=== PATIENT | female | born 1990 | race Caucasian/White ===

== ENCOUNTER → 2017-09-25 11:48 | Outpatient (CLI) | payer MEDICAID, SELFPAY ==
[2017-09-25 13:01] LABS: Cholesterol 128 mg/dL (200); Glucose 104 mg/dL (74-106); High Density Lipoprotein 39 mg/dL; Thyroid Stim Hormone (TSH) 1.81 uIU/mL (0.358-3.74); Triglycerides 165 mg/dL; Very Low Density Lipoprotein 33 mg/dL (5-40)
== END ==
PROVIDERS: Family Provider Internal Medicine; PCP Internal Medicine; Visit Provider Nurse Practitioner Women's Health
DX: N92.6 Irregular menstruation, unspecified (principal)
CPT/HCPCS: 36415; 80061; 82947; 83036; 84443

== ENCOUNTER → 2017-09-25 18:33 | Outpatient (CLI) | payer MEDICAID, SELFPAY ==
--- NOTE | 2017-09-25 | EMB_PTH ---
PATIENT: ELENI LOU LOC: [facility] U#:[id number] AGE/SX: 35/F ROOM: RE09/25/[address]: ANNIE Powell : 1990 BED: DIS: SPEC #: [id number] RECD: 09/25/17 18:33 STATUS: ADAN HEMAL #: [id number] THANH: 09/25/17 00:[address]: Argelia Riley NP DEPT: SURGICAL PATHOLOGY RECD BY: Severiano Valerio Tissues: Endometrium, NOS Procedures: Surgery Specimen Level IV HEADER OPERATION: Endometrial biopsy PRE-OP DIAGNOSIS: Irregular menses TISSUE SUBMITTED: Endometrial biopsy MICROSCOPIC DIAGNOSIS Endometrial biopsy: Proliferative endometrium. SJ:ghassan 09/29/17 MICROSCOPIC DESCRIPTION Slides are reviewed. GROSS DESCRIPTION Received is one container labeled with the patient's name and not further designated. The specimen consists of multiple irregular fragments of aguila-red soft tissue that in aggregate measure 2 x 2 x 0.1 cm. The specimen is totally submitted in one cassette. / SHARMIN:ghassan 09/26/17 TC:4 CPT: 37944
[2017-09-30 12:26] LABS: HPV Reflexed? NOT INDICATED
== END ==
PROVIDERS: Visit Provider Nurse Practitioner Women's Health
DX: N92.6 Irregular menstruation, unspecified (principal); Z12.4 Encounter for screening for malignant neoplasm of cervix; N85.8 Other specified noninflammatory disorders of uterus
CPT/HCPCS: 36415; 80061; 82947; 83036; 84443; 88175; 88305; G0145

== ENCOUNTER → 2017-11-25 16:15 | Outpatient (CLI) | payer MEDICAID, SELFPAY ==
[2017-11-25 17:16] LABS: Absolute Lymphocyte Count 2.35 X10^3/ul (0.83-4.51); Absolute Neutrophil Count 4.7 X10^3/uL (2.0-7.7); Basophil# 0.02 X10^3/uL; Basophil% 0.3 % (0-1); Eosinophil# 0.26 X10^3/uL; Eosinophils% 3.3 % (0-5); Hematocrit 36.5 % (37-47); Hemoglobin 12.3 g/dl (12.0-15.0); Lymphocyte # 2.35 X10^3/ul (4.0); Lymphocyte % 29.7 % (19-41); Mean Corp Hgb Conc 33.7 g/gl (32-36); Mean Corpuscular Hgb 28.7 pg (27.0-32.0); Mean Corpuscular Volume 85.3 fL (81-99); Mean Platelet Vol. 10.5 fl (6.2-12.0); Monocyte# 0.56 X10^3/uL; Monocyte% 7.1 % (0-10); Neutrophil # 4.69 X10^3/uL (2.7-7.7); Neutrophil % 59.2 % (47-70); Platelet Count 254 K/mm3 (150-450); RBC Distribution Width CV 13.1 % (11.6-14.6); RBC Distribution Width SD 40.2 fl (35.1-43.9); Red Blood Count 4.28 M/mm3 (4.2-5.4); White Blood Count 7.9 K/mm3 (4.4-11.0)
[2017-11-25 17:27] LABS: POSITIVE COUNT NO; POSITIVE DIFFERENTIAL NO; POSITIVE MORPHOLOGY NO
== END ==
PROVIDERS: Family Provider Internal Medicine; PCP Internal Medicine; Visit Provider Nurse Practitioner Women's Health
DX: N92.1 Excessive and frequent menstruation with irregular cycle (principal)
CPT/HCPCS: 36415; 85025

== ENCOUNTER 2019-07-22 00:59 | Emergency (ER) | payer OTHER, SELFPAY ==
[2019-07-22 01:01] VITALS: BP 142/84; PULSE 115; RESP 16; RESP 20; TEMP 36.6; O2SAT 94; BMI 32.8
[2019-07-22] MEDS: Ondansetron ODT 4 MG Tablet PO (01:13)
--- NOTE | 2019-07-22 01:14 | ED.VIS.GEN ---
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 She has been exposed to clients with influenza. She presents with documented fever, headache, myalgias, arthralgias, nasal congestion and rhinorrhea, nonproductive cough. She has had episode of emesis x2. She denies diarrhea. She denies joint swelling. She denies rash. She has no chronic medical problems. She denies symptoms. Prior similar symptoms: No Recent Illness/Hospitalization: No - Past Medical History (1) PCOS (polycystic ovarian syndrome) Status: Chronic Past Medical History - Allergies and Home Meds Allergies/Adverse Reactions: Allergies bupropion [From Wellbutrin] Allergy (Mild, Verified 11/25/17 15:47) suicidal ideations increased Primary Care Physician: Frida Tamayo MD [Primary Care Provider] - Prior records reviewed: Yes Surgical History: no surgical history Lives: Spouse/ Significant Other Smoking Status: Never smoker Alcohol: Rare Drugs: None Review of Systems General: Reports: Chills, Fever, Malaise. Denies: Sweats, Weight loss Eyes: Denies: Visual changes - bilaterally, Blurred Vision - bilaterally ENT: Reports: Rhinorrhea, Sore throat. Denies: Bilateral ear pain Cardiovascular: Denies: Chest pain, Palpitations Respiratory: Reports: Cough. Denies: Dyspnea, Sputum, Dyspnea on exertion, Orthopnea, Paroxysmal nocturnal dyspnea Gastrointestinal: Reports: Nausea, Vomiting. Denies: Abdominal pain, Diarrhea, Melena, Hematochezia Genitourinary: Denies: Dysuria, Hematuria, Frequency Musculoskeletal: Reports: Myalgias, Arthralgias, Neck pain, Back pain. Denies: Swelling, Extremity Pain Skin: Denies: Rash, Wounds Neurological: Reports: Headache. Denies: Weakness, Parasthesia, Numbness, -, - Endocrine: Denies: Polyuria, Polydipsia Physical Exam Vital Signs/Narrative: Vital Signs Temp Pulse Resp BP Pulse Ox 07/22/19 01:01 97.9 F 115 H 20 H 142/84 H 94 Inital Vital Signs reviewed: Yes General: Well nourished, Well developed, Obese, No Acute Distress Head: Normocephalic, Atraumatic Eyes: Perrl, EOMI. Negative for: Pale conjunctiva, Scleral icterus ENT: Moist mucous membranes, TM's clear, Nasal congestion Neck: Supple, Nontender, No lymphadenopathy, No JVD Cardiovascular: Regular rhythm, No murmurs, Normal S1, Normal S2, Tachycardia Respiratory: No distress, CTA bilaterally, Chest nontender Abdomen: Soft, Nontender, Nondistended, Normal bowel sounds Back: Nontender, Normal Inspection Extremities: Nontender, No edema Skin: Normal color, No rash Neurological: Alert, Oriented x3, Cranial nerves II-XII grossly intact, Normal Strength, Normal Sensation Psychological: Normal affect, Normal Mood Diagnostic/Tx/Re-eval 07/22/19 01:14 Mucosa - Nose Influenza Types A,B Direct FA (ELAYNE) - Final Influenzae A - Medical Decision Making 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 If positive she will be excused from work. She was informed that she has influenza type A. Since she works in a long-term she was given work excuse. Since she has no significant past medical history and is not hemodynamically unstable nor she hypoxic treatment was not initiated. ED Disposition - Plan for ED Patient: Disposition: Home or Assisted Living Diagnosis: Influenza due to influenza virus, type A, human Instructions: INFLUENZA (Adult) Referrals: Frida Tamayo MD [Primary Care Provider] - 1 Week if not improving
[2019-07-22 02:01] VITALS: BP 139/93; PULSE 109; RESP 18; O2SAT 93
== END 2019-07-22 02:03 | disposition home or self-care (01) ==
PROVIDERS: Emergency Provider Emergency Medicine; PCP Internal Medicine
DX: J10.1 Influenza due to other identified influenza virus with other respiratory manifestations (principal); R11.2 Nausea with vomiting, unspecified; E28.2 Polycystic ovarian syndrome
CPT/HCPCS: 87804; 99283

== ENCOUNTER 2023-08-08 05:45 | Day surgery (SDC) | payer BC, SELFPAY ==
[2023-07-17 16:28] LABS: Hematocrit 39.2 % (37-47); Hemoglobin 12.5 g/dL (12.0-15.0); Mean Corp Hgb Conc 31.9 g/dL (32-36); Mean Corpuscular Hgb 27.1 pg (27.0-32.0); Mean Platelet Vol. 10.7 fl (6.2-12.0); Platelet Count 290 K/mm3 (150-450); RBC Distribution Width CV 14.2 % (11.6-14.6); RBC Distribution Width SD 44.5 fl (35.1-43.9); Red Blood Count 4.61 M/mm3 (4.2-5.4); White Blood Count 8.8 K/mm3 (4.4-11.0)
[2023-07-17 16:40] LABS: Hemoglobin A1c 6.4 % (3.8-5.6)
[2023-07-17 17:04] LABS: Anion Gap 5 (5-15); BUN 12 mg/dL (7-18); BUN/Creat Ratio 17.3 RATIO (10-20); Chloride 104 mmol/L (98-107); Creatinine, Serum 0.69 mg/dL (0.55-1.02); EST Glomerular Filtration Rate 103 mL/min (>60); Est Glom Filt Rate - Afr Amer 125 mL/min (>60); Glucose 111 mg/dL (74-106); Potassium 3.7 mmol/L (3.5-5.1); Sodium Level 135 mmol/L (136-145)
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
--- NOTE | 2023-08-07 07:30 | EMB_PTH ---
PATHOLOGY RESULTS PATIENT: ELENI LOU LOC: [facility] [place] U#:[id number] AGE/SX: 33/F ROOM: RE08/08/[address]: Dr. Chiara Lara MD : 1990 BED: DIS: 08/08/2023 SPEC #: [id number] RECD: 08/08/23 10:10 STATUS: ADAN HEMAL #: [id number] THANH: 08/07/23 07:[address]: Chiara Lara DEPT: SURGICAL PATHOLOGY RECD BY: Miryam Ackerman ENTERED: 08/08/23 10:11 SP TYPE: ENDOM BX/C CHEL DR: No Primary Care Phys Tissues: Endometrium, NOS Procedures: Surgery Specimen Level IV HEADER OPERATION: Hysteroscopy, D & C Symphion, IUD insertion PRE-OP DIAGNOSIS: Abnormal uterine bleeding, endometrial polyp, hyperplasia TISSUE SUBMITTED: Endometrial curettings and polyp MICROSCOPIC DIAGNOSIS Endometrial curettings and polyp: Proliferative endometrium with focally disordered proliferative endometrium. Fragments of myometrium. See comment. SHARMIN:ghassan 08/11/2023 COMMENT Clinical correlation and appropriate follow up are necessary. MICROSCOPIC DESCRIPTION Slides are reviewed. GROSS DESCRIPTION Received in fixative is one container labeled with the patient's name and designated endometrial curettings and polyp. The specimen consists of multiple irregular fragments of aguila-pink soft tissue that in aggregate measure 2.5 x 2.5 x 0.2 cm. The entire specimen is submitted in one cassette. / SHARMIN:ghassan 08/08/2023 TC:5 CPT: 01024
[2023-08-08] VITALS (7 sets, daily range): BP systolic 97–121; BP diastolic 66–78; PULSE 73–81; RESP 15–18; TEMP 36.3–36.4; O2SAT 94–97; BMI 50.7
--- OUTSIDE RECORDS SUMMARY | 2023-08-08 05:50 | XMS RPT_ITS | CCD ---
Author Name Unknown Address [address] [place] [address] Organization [facility] Care Team Providers Care Machinist Class B Name Role Phone Lalita Staples Unavailable Unavailable PROVIDER, UNKNOWN Unavailable Unavailable No, PCP Unavailable Unavailable Roni SIMMS, Bao Primary Care Provider [phone] Bao Tamayo MD Primary Care Provider [phone] Bao Tamayo MD Primary Care Provider NO, PHYSICIAN Primary Care Unavailable FARHEEN LAWRENCE Attending Unavailable GODFREY, ELENA Referring Unavailable GANTA, BAO Primary Care Unavailable DENBOW, MARY Referring Unavailable GANTA, BAO Primary Care Unavailable DENBOW, MARY Attending Unavailable GANTA, BAO Primary Care Unavailable GANTA, BAO Attending Unavailable GANTA, BAO Primary Care Unavailable CHIARA MENSAH Attending Unavail able GANTA, BAO Primary Care Unavailable GODFREY, ELENA Referring Unavailable GODFREY, ELENA Attending Unavailable GANTA, BAO Primary Care Unavailable GODFREY, ELENA Referring Unavailable GANTA, BAO Primary Care Unavailable GODFREY, ELENA Attending Unavailable GANTA, BAO Primary Care Unavailable DENBOW, MARY Attending Unavailable GANTA, BAO Primary Care Unavailable Allergies Allergy Classification Reported Allergen(s) Allergy Type Date of Onset Reaction(s) Facility (20 sources) buPROPion; Translations: [BUPROPION] Drug Allergy 6 Mental Status Change [facility] Work Phone: (1 source) buPROPion; Translations: [BUPROPION HCL] Drug Allergy 1 [facility] Repository Medications Current Medications Medication Drug Class(es) Dates Sig (Normalized) Sig (Original) Blood-Glucose Meter monitoring kit (3 sources) Start: 06-27-2022 End: 06-28-2022 Blood-Glucose Meter monitoring kit Glucose Meter of Choice - Kit - Dx: Type 2 DM - Controlled E11.9 1 Each 0 06/27/2022 06/28/2022 Active Completed/Discontinued Medications Medication Drug Class(es) Dates Sig (Normalized) Sig (Original) [id number] 200 actuat albuterol 0.09 mg/actuat metered dose inhaler (20 sources) beta2-Adrenergic Agonist Start: 06-18-2021 take 2 puff(s) by inhalation every four hours as needed albuterol HFA (PROVENTIL HFA, VENTOLIN HFA) 90 mcg/actuation inhaler Indications: Wheezing , Suspected COVID-19 virus infection Inhale 2 Puffs as instructed every 4 hours as needed. 6.7 g 1 06/18/2021 Active Problems Active Problems Problem Classification Problem Date Documented Date Episodic/Chronic Abdominal pain (4 sources) Pain in female pelvis; Translations: [Pelvic and perineal pain] Onset: 04-29-2023 04-29-2023 Episodic Administrative/social admission (3 sources) Patient encounter status; Translations: [Dietary counseling and surveillance] Episodic Anxiety disorders (20 sources) Mixed anxiety and depressive disorder; Translations: [Other specified anxiety disorders] Onset: 04-01-2018 04-01-2018 Chronic Attention-deficit, conduct, and disruptive behavior disorders (1 source) Attention deficit hyperactivity disorder; Translations: [Attention-deficit hyperactivity disorder, unspecified type] Chronic Diabetes mellitus without complication (6 sources) Type 2 diabetes mellitus; Translations: [Type 2 diabetes mellitus without complications] Onset: 05-01-2023 Chronic Disorders of lipid metabolism (3 sources) Hypertriglyceridemia; Translations: [Pure hyperglyceridemia] Chronic Disorders usually diagnosed in infancy, childhood, or adolescence (20 sources) Adult attention deficit hyperactivity disorder ; Translations: [Other specified behavioral and emotional disorders with onset usually occurring in childhood and adolescence] Onset: 06-26-2022 Chronic Headache, including migraine (20 sources) Migraine without aura, not intractable, without status migrainosus; Translations: [Migraine, unspecified, not intractable, without status migrainosus] Onset: 05-24-2017 Chronic Immunizations and screening for infectious disease (1 source) Viral screening status; Translations: [Encounter for screening for other viral diseases] Episodic Miscellaneous mental health disorders (1 source) 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; 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 Nonspecific chest pain (1 source) Chest pain; Translations: [Chest pain, unspecified] 04-02-2023 Episodic Nutritional deficiencies (4 sources) Vitamin D deficiency; Translations: [Vitamin D deficiency, unspecified] Onset: 04-02-2023 04-02-2023 Chronic Other endocrine disorders (20 sources) Polycystic ovary syndrome; Translations: [Polycystic ovarian syndrome] Onset: 09-07-2013 Chronic Other female genital disorders (3 sources) Abnormal uterine bleeding; Translations: [Abnormal uterine and vaginal bleeding, unspecified] Chronic Other female genital disorders (1 source) Pain in female genitalia on intercourse; Translations: [Unspecified dyspareunia] Chronic Other nutritional; endocrine; and metabolic disorders (2 sources) Severe obesity; Translations: [Morbid (severe) obesity due to excess calories] Chronic Other nutritional; endocrine; and metabolic disorders (20 sources) Obesity; Translations: [Obesity, unspecified] Onset: 03-26-2012 11-11-2013 Chronic Other nutritional; endocrine; and metabolic disorders (8 sources) Body mass index 40+ - severely obese; Translations: [Morbid (severe) obesity due to excess calories] Chronic Other nutritional; endocrine; and metabolic disorders (1 source) Metabolic syndrome X; Translations: [Metabolic syndrome] Chronic Other nutritional; endocrine; and metabolic disorders (20 sources) Insulin resistance; Translations: [Metabolic syndrome] Onset: 06-26-2022 Chronic Other nutritional; endocrine; and metabolic disorders (1 source) Body mass index (BMI) 50.0-59.9, adult; Translations: [BMI 50.0-59.9, adult ([facility])] Onset: 05-01-2023 Chronic Other nutritional; endocrine; and metabolic disorders (1 source) Weight gain; Translations: [Abnormal weight gain] 04-02-2023 Episodic Other screening for suspected conditions (not mental disorders or infectious disease) (3 sources) Endometrium thickened; Translations: [Abnormal findings on diagnostic imaging of other specified body structures] Onset: 05-01-2023 05-01-2023 Chronic Other screening for suspected conditions (not mental disorders or infectious disease) (4 sources) Ultrasonography of abdomen abnormal; Translations: [Abnormal findings on diagnostic imaging of other abdominal regions, including retroperitoneum] Onset: 05-01-2023 Episodic Other skin disorders (1 source) Loss of hair; Translations: [Nonscarring hair loss, unspecified] 04-02-2023 Episodic Other upper respiratory infections (2 sources) Streptococcal pharyngitis; Translations: [Streptococcal pharyngitis] Onset: 11-12-2022 Episodic Residual codes; unclassified (1 source) FH: Thyroid disorder; Translations: [Family history of other endocrine, nutritional and metabolic diseases] 04-02-2023 Episodic Unclassified (1 source) NO SHOW Unclassified (1 source) Insulin resistance; Translations: [Insulin resistance] Onset: 06-26-2022 Past or Other Problems Problem Classification Problem Date Documented Da te Episodic/Chronic Diabetes mellitus without complication (17 sources) Prediabetes; Translations: [Prediabetes] Onset: 06-26-2022 Episodic Malaise and fatigue (2 sources) Fatigue; Translations: [Other fatigue] Onset: 04-02-2023 04-02-2023 Episodic Other circulatory disease (20 sources) Elevated blood-pressure reading without diagnosis of hypertension; Translations: [Elevated blood-pressure reading, without diagnosis of hypertension] Onset: 10-26-2021 Episodic Other complications of (6 sources) History of premature rupture of membranes; Translations: [Supervision of with other poor reproductive or obstetric history, unspecified trimester] Onset: 01-09-2015 06-11-2021 Episodic Other lower respiratory disease (20 sources) H/O: asthma; Translations: [Personal history of other diseases of the respiratory system] Onset: 03-26-2012 06-11-2021 Episodic Other nervous system disorders (20 sources) History of migraine with aura; Translations: [Personal history of other diseases of the nervous system and sense organs] Onset: 10-26-2021 Episodic Other non-traumatic joint disorders (20 sources) Pain in unspecified knee; Translations: [Pain in joint, lower leg] Onset: 11-11-2013 11-11-2013 Episodic Other nutritional; endocrine; and metabolic disorders (1 source) Abnormal weight gain; Translations: [Weight gain] Onset: 04-02-2023 Episodic Other skin disorders (1 source) Nonscarring hair loss, unspecified; Translations: [Hair thinning] Onset: 04-02-2023 Episodic Residual codes; unclassified (1 source) Family history of other endocrine, nutritional and metabolic diseases; Translations: [Family history of thyroid disease] Onset: 04-02-2023 Episodic Screening or history of mental health and substance abuse (20 sources) Personal history of nicotine dependence; Translations: [H/O: depression] Onset: 03-26-2012 06-11-2021 Episodic Results Test Name Value Interpretation Reference Range Facil ity Vital Signs Date Time Vital Sign Value Performing Clinician Cam guzman 05-12-2023 10:48-0500 Body weight 143.79 kg Elena Godfrey APRN.[facility] Work Phone: [facility] 05-12-2023 10:48-0500 Diastolic blood pressure 72 mm[Hg] Elena Godfrey APRN.[facility] Work Phone: [facility] 05-12-2023 10:48-0500 Systolic blood pressure 120 mm[Hg] Elena Godfrey APRN.[facility] Work Phone: [facility] 05-01-2023 14:06-0500 Body height 170.2 cm Mary Denbow PA-C Work Phone: [facility] 05-01-2023 14:06-0500 Body temperature 97.59 [degF] Mary Denbow PA-C Work Phone: [facility] 05-01-2023 14:06-0500 Body weight 142.88 kg Mary Denbow PA-C Work Phone: [facility] 05-01-2023 14:06-0500 Diastolic blood pressure 62 mm[Hg] Mary Denbow PA-C Work Phone: [facility] 05-01-2023 14:06-0500 Heart rate 87 /min Mary Denbow PA-C Work Phone: [facility] 05-01-2023 14:06-0500 Respiratory rate 12 /min Amry Denbow PA-C Work Phone: [facility] 05-01-2023 14:06-0500 SaO2% (BldA) [Mass fraction] 98 % Mary Denbow PA-C Work Phone: [facility] 05-01-2023 14:06-0500 Systolic blood pressure 128 mm[Hg] Mary Denbow PA-C Work Phone: [facility] 04-02-2023 13:52-0400 Body height 170.2 cm Mary Denbow PA-C Work Phone: [facility] 04-02-2023 13:52-0400 Body temperature 97.2 [degF] Mary Denbow PA-C Work Phone: [facility] 04-02-2023 13:52-0400 Body weight 144.24 kg Mary Denbow PA-C Work Phone: [facility] 04-02-2023 13:52-0400 Diastolic blood pressure 70 mm[Hg] Mary Denbow PA-C Work Phone: [facility] 04-02-2023 13:52-0400 Heart rate 97 /min Mary Denbow PA-C Work Phone: [facility] 04-02-2023 13:52-0400 Respiratory rate 14 /min Mary Denbow PA-C Work Phone: [facility] 04-02-2023 13:52-0400 SaO2% (BldA) [Mass fraction] 98 % Mary Denbow PA-C Work Phone: [facility] 04-02-2023 13:52-0400 Systolic blood pressure 134 mm[Hg] Mary Denbow PA-C Work Phone: [facility] 09-09-2022 13:58-0400 Body weight 144.7 kg Bao Tamayo MD Work Phone: [facility] 09-09-2022 13:58-0400 Diastolic blood pressure 80 mm[Hg] Bao Tamayo MD Work Phone: [facility] 09-09-2022 13:58-0400 Heart rate 103 /min Bao Tamayo MD Work Phone: [facility] 09-09-2022 13:58-0400 SaO2% (BldA) [Mass fraction] 98 % Bao Tamayo MD Work Phone: [facility] 09-09-2022 13:58-0400 Systolic blood pressure 110 mm[Hg] Bao Tamayo MD Work Phone: [facility] 06-26-2022 08:48-0500 Body weight 152.95 kg Shay Malcolm RADIOLOGICAL HEALTH SPECIALIST.PICKING TABLE WORKER Work Phone: [facility] 06-26-2022 08:48-0500 Diastolic blood pressure 82 mm[Hg] Shay Malcolm RADIOLOGICAL HEALTH SPECIALIST.PICKING TABLE WORKER Work Phone: [facility] 06-26-2022 08:48-0500 Heart rate 84 /min Shay Malcolm RADIOLOGICAL HEALTH SPECIALIST.PICKING TABLE WORKER Work Phone: [facility] 06-26-2022 08:48-0500 SaO2% (BldA) [Mass fraction] 96 % Shay Malcolm RADIOLOGICAL HEALTH SPECIALIST.PICKING TABLE WORKER Work Phone: [facility] 06-26-2022 08:48-0500 Systolic blood pressure 124 mm[Hg] Shay Malcolm RADIOLOGICAL HEALTH SPECIALIST.PICKING TABLE WORKER Work Phone: [facility] 11-01-2021 16:02-0400 Body weight 148.78 kg Shay Malcolm RADIOLOGICAL HEALTH SPECIALIST.PICKING TABLE WORKER Work Phone: [facility] 11-01-2021 16:02-0400 Diastolic blood pressure 80 mm[Hg] Shay Malcolm RADIOLOGICAL HEALTH SPECIALIST.PICKING TABLE WORKER Work Phone: [facility] 11-01-2021 16:02-0400 Heart rate 94 /min Shay Malcolm RADIOLOGICAL HEALTH SPECIALIST.PICKING TABLE WORKER Work Phone: [facility] 11-01-2021 16:02-0400 SaO2% (BldA) [Mass fraction] 98 % Shay Malcolm RADIOLOGICAL HEALTH SPECIALIST.PICKING TABLE WORKER Work Phone: [facility] 11-01-2021 16:02-0400 Systolic blood pressure 122 mm[Hg] Shay Malcolm RADIOLOGICAL HEALTH SPECIALIST.PICKING TABLE WORKER Work Phone: [facility] 10-26-2021 09:44-0400 Body weight 149.23 kg Elena Godfrey RADIOLOGICAL HEALTH SPECIALIST.CNM Work Phone: [facility] 10-26-2021 09:44-0400 Diastolic blood pressure 84 mm[Hg] Elena Godfrey RADIOLOGICAL HEALTH SPECIALIST.CNM Work Phone: [facility] 10-26-2021 09:44-0400 Systolic blood pressure 134 mm[Hg] Elena Godfrey RADIOLOGICAL HEALTH SPECIALIST.CNM Work Phone: [facility] 10-04-2021 13:05-0400 Body weight 151.5 kg Shay Malcolm RADIOLOGICAL HEALTH SPECIALIST.PICKING TABLE WORKER Work Phone: [facility] 10-04-2021 13:05-0400 Diastolic blood pressure 86 mm[Hg] Shay Malcolm RADIOLOGICAL HEALTH SPECIALIST.PICKING TABLE WORKER Work Phone: [facility] 10-04-2021 13:05-0400 Heart rate 92 /min Shay Malcolm RADIOLOGICAL HEALTH SPECIALIST.PICKING TABLE WORKER Work Phone: [facility] 10-04-2021 13:05-0400 Respiratory rate 16 /min Shay Malcolm RADIOLOGICAL HEALTH SPECIALIST.PICKING TABLE WORKER Work Phone: [facility] 10-04-2021 13:05-0400 SaO2% (BldA) [Mass fraction] 97 % Shay Malcolm RADIOLOGICAL HEALTH SPECIALIST.PICKING TABLE WORKER Work Phone: [facility] 10-04-2021 13:05-0400 Systolic blood pressure 130 mm[Hg] Shay Malcolm RADIOLOGICAL HEALTH SPECIALIST.PICKING TABLE WORKER Work Phone: [facility] 09-10-2021 09:29-0400 Body weight 152.86 kg Elena Godfrey RADIOLOGICAL HEALTH SPECIALIST.CNM Work Phone: [facility] 09-10-2021 09:29-0400 Diastolic blood pressure 76 mm[Hg] Elena Godfrey RADIOLOGICAL HEALTH SPECIALIST.CNM Work Phone: [facility] 09-10-2021 09:29-0400 Systolic blood pressure 128 mm[Hg] Elena Godfrey RADIOLOGICAL HEALTH SPECIALIST.CNM Work Phone: [facility] Encounters Encounter Date Encounter Type Care Provider Facility Start: 07-16-2023 End: 07-16-2023 ambulatory CHIARACHUY GRACIANTOSH Facility:[facility] Start: 06-13-2023 End: 06-13-2023 ambulatory ELENA GODFREY Facility:[facility] Start: 05-12-2023 End: 05-12-2023 ambulatory ELENA GODFREY Facility:[facility] Start: 05-12-2023 End: 05-12-2023 Patient encounter procedure Elena Godfrey APRN.CNM Work Phone: OB/Gynecology Procedures Date Procedure Procedure Detail Performing Clinician Start: 04-29-2023 Us transvaginal Elena Godfrey APRN.CNM Work Phone: Plan of Treatment Date Care Activity Detail Author Start: 06-02-2025 Urine microalbumin profile [facility] Start: 05-01-2024 Annual PCP Team Podiatric Aide rick Disease Visit Annual PCP Team Chronic Disease Visit [facility] Start: 10-02-2023 Hemoglobin A1c/Hemoglobin.total in Blood HbA1C [facility] Start: 08-01-2023 End: 10-31-2023 Hepatic function 2000 panel - Serum or Plasma HEPATIC FUNCTION PNL Lab Routine Elevated LFTs Expected: 08/01/2023, Expires: 10/31/[address] [facility] Work Phone: Immunizations Immunization Date Immunization Notes Care Provider Kirby lima 09-10-2016 influenza, injectabl e, quadrivalent, contains preservative Elena Godfrey APRN.[facility] Work Phone: [facility] 06-02-2015 tetanus toxoid, redu kiley diphtheria toxoid, and acellular pertussis vaccine, adsorbed Elena Epifanio CAMPOSN.[facility] Work Phone: [facility] 03-06-2015 influenza, injectabl e, quadrivalent, contains preservative Elena Epifanio GALDAMEZ.[facility] Work Phone: [facility] 11-11-2013 tetanus toxoid, redu kiley diphtheria toxoid, and acellular pertussis vaccine, adsorbed Elena Godfrey RADIOLOGICAL HEALTH SPECIALIST.CNM Work Phone: [facility] Work Phone: 10-09-2012 human papilloma viru s vaccine, quadrivalent Elena Godfrey RADIOLOGICAL HEALTH SPECIALIST.CNM Work Phone: [facility] Work Phone: 03-29-2010 hepatitis B vaccine, adult dosage Elena Epifanio RADIOLOGICAL HEALTH SPECIALIST.CNM Work Phone: [facility] 02-26-2007 human papilloma viru s vaccine, quadrivalent Elena Epifanio RADIOLOGICAL HEALTH SPECIALIST.CNM Work Phone: [facility] 03-14-2003 measles, mumps and rubella virus vaccine Elena Epifanio RADIOLOGICAL HEALTH SPECIALIST.CNM Work Phone: [facility] 01-06-1995 diphtheria, tetanus toxoids and acellular pertussis vaccine Elena Godfrey RADIOLOGICAL HEALTH SPECIALIST.CNM Work Phone: [facility] 01-06-1995 hepatitis B vaccine, pediatric or pediatric/adolescent dosage Elena Epifanio RADIOLOGICAL HEALTH SPECIALIST.CNM Work Phone: [facility] 01-06-1995 trivalent poliovirus vaccine, live, oral Elena Godfrey RADIOLOGICAL HEALTH SPECIALIST.CNM Work Phone: [facility] 04-10-1994 hepatitis B vaccine, pediatric or pediatric/adolescent dosage Elena Epifanio RADIOLOGICAL HEALTH SPECIALIST.CNM Work Phone: [facility] 04-04-1994 diphtheria, tetanus toxoids and pertussis vaccine Elena Godfrey RADIOLOGICAL HEALTH SPECIALIST.CNM Work Phone: [facility] 04-04-1994 trivalent poliovirus vaccine, live, oral Elena Godfrey RADIOLOGICAL HEALTH SPECIALIST.CNM Work Phone: [facility] 10-20-1992 hepatitis B vaccine, pediatric or pediatric/adolescent dosage Elena Epifanio RADIOLOGICAL HEALTH SPECIALIST.CNM Work Phone: [facility] 09-01-1992 haemophilus influenz ae type b vaccine, HbOC conjugate Elena Godfrey RADIOLOGICAL HEALTH SPECIALIST.CNM Work Phone: [facility] 09-01-1992 measles, mumps and rubella virus vaccine Elena Epifanio CAMPOSN.CNM Work Phone: [facility] 1990 diphtheria, tetanus toxoids and acellular pertussis vaccine Elenafrantz Godfrey RADIOLOGICAL HEALTH SPECIALIST.CNM Work Phone: [facility] 1990 diphtheria, tetanus toxoids and pertussis vaccine Elena Epifanio RADIOLOGICAL HEALTH SPECIALIST.CNM Work Phone: [facility] 1990 haemophilus influenz ae type b vaccine, HbOC conjugate Elenafrantz Godfrey RADIOLOGICAL HEALTH SPECIALIST.CNM Work Phone: [facility] 1990 trivalent poliovirus vaccine, live, oral Elenafrantz Godfrey RADIOLOGICAL HEALTH SPECIALIST.CNM Work Phone: [facility] 1990 diphtheria, tetanus toxoids and pertussis vaccine Elenafrantz Godfrey RADIOLOGICAL HEALTH SPECIALIST.CNM Work Phone: [facility] 1990 trivalent poliovirus vaccine, live, oral Elenafrantz Godfrey RADIOLOGICAL HEALTH SPECIALIST.CNM Work Phone: [facility] Payers Date Payer Category Payer Unknown [id number] 2022 Unknown [id number] 2022 Unknown 2022 Unknown [id number] 2020 Private Health Insurance [facility] CHOICE PLUS [id number] 2020-Present [phone] [address] [place] [address] [facility] [id number] 1990 Unknown [id number] Social History Date Type Detail Facility Start: 03-26-2012 End: 06-26-2022 Tobacco smoking status NHIS Ex-smoker [facility] Work Phone: End: 12-15-2011 History of tobacco use Current smoker [facility] Work Phone: Start: 03-26-2012 End: 06-26-2022 Tobacco use and exposure Smokeless tobacco non-user [facility] Work Phone: Start: 09-10-2021 End: 05-12-2023 Alcohol intake Current drinker of alcohol (finding) [facility] Start: 06-18-2021 History SDOH Alcohol Frequency 2 [facility] Start: 06-18-2021 History SDOH Alcohol Std Drinks 1 [facility] Start: 03-26-2012 History SDOH Alcohol Comment occ. monthly,NOT WHILE [facility] Start: 06-18-2021 History SDOH Social Connections Get Together 98 [facility] Start: 06-18-2021 History SDOH Social Connections Living 8 [facility] Start: 06-18-2021 History SDOH Physica l Activity DPW 3 [facility] Start: 06-18-2021 History SDOH Stress 4 [facility] Start: 1990 Sex Assigned At Female C [facility] Start: 08-14-2021 End: 12-27-2021 Exposure to SARS-CoV-2 (event) Not sure [facility] Start: 11-22-2021 History SDOH Alcohol Comment very rare,NOT WHILE [facility] End: 12-15-2011 History of tobacco use Cigarette Smoker [facility] Work Phone: Start: 05-22-2020 End: 06-18-2021 History of Social function [facility] Start: 05-22-2020 End: 06-18-2021 Social connection and isolation panel [facility] How often do you get together with friends or relatives? Patient refused [facility] Do you belong to any clubs or organizations such as denominational groups, unions, fraternal or athletic groups, or school groups? No [facility] Are you now , , , , never or living with a partner? Living with partner [facility] How often to you hav e a drink containing alcohol? Monthly or less [facility] How many standard dr inks containing alcohol do you have on a typical day? 1 or 2 [facility] How often do you hav e 6 or more drinks on 1 occasion? Never [facility] How hard is it for y ou to pay for the very basics like food, housing, medical care, and heating Somewhat hard [facility] Do you feel stress - tense, restless, nervous, or anxious, or unable to sleep at night because your mind is troubled all the time - these days [OSQ] Rather much [facility] (I/We) worried wheth er (my/our) food would run out before (I/we) got money to buy more. Sometimes true [facility] [facility] Start: 06-18-2021 Gender identity Identifies as female gender (finding) [facility] Start: 06-18-2021 Sexual orientation Choose not to dis close [facility] Medical Equipment Procedure Code Equipment Code Equipment Origin al Text Equipment Identifier Dates Test blood sugar (s) 2 times daily. Dx: Type 2 DM - Controlled E11.9 Insulin: No Start: 06-27-2022 Clinical Notes 06-19-2015 to 07-16-2023 Elena Godfrey APRN.CNM - 05/12/2023 10:38 AM ESTMary Caldwell PA-C - 05/01/2023 1:56 PM Elena Wade RDMS - 04/29/2023 1:45 PM Boubacar Keita MD - 06/27/2022 3:15 PM EST Note Date & Type Note Facility 07-16-2023 Note HNO ID: [id number] Author: CHIARA MENSAH MD Service: ? Author Type: Physician Type: Progress Notes Filed: 07/16/2023 17:00 Note Text: [facility] 06-13-2023 Note HNO ID: [id number] Author: Elena Godfrey APRN.CNM Service: ? Author Type: Wastewater Engineer Type: Progress Notes Filed: 06/13/2023 1:44 PM Note Text: Aidee is a 33 year old Female who presents today for an endometrial biopsy for abnormal uterine bleeding, thickening of endometrial lining. test: negative UNIVERSAL PROTOCOL / SAFETY CHECKLIST Procedure to be Performed: Endometrial Biopsy Sign In: A Moment of CARE was completed. Personnel directly involved with the procedure wore the appropriate PPE (Personal Protective Equipment). Special equipment: pipelle Patient/Surrogate Stated/Verified: PATIENT VERIFIED(optional for EMERGENT procedures): Patient name, Date of , Relevant allergies, and The intended procedure Time Out Communication: Intended patient and procedure match the source documents. Consent documented and matches the intended procedure. Relevant labs, photos, and/or imaging studies have been reviewed. Correct side/site marked and visible. Medications required for procedure verified. No fire risk assessment and interventions applicable. Implant(s) inserted: Correct implant(s) confirmed including size and side. Sign Out: SIGN OUT (optional for EMERGENT procedures): All specimen containers correctly labeled. All instruments, equipment, possible retained foreign bodies accounted for. Post-procedure follow-up management communicated and Plan of Care Visit completed when applicable. PROCEDURE: EXTERNAL GENITALIA: Normal in appearance without lesions VAGINA: Normal in appearance without lesions BIOPSY: Speculum placed into the vagina with excellent visualization of the cervix. Cervix cleaned with betadine. Anterior lip of cervix grasped with single toothed tenaculum. Pipelle inserted into the uterus without difficulty and endometrial biopsy obtained. Specimen labeled and sent to pathology. Hemostasis achieved. Procedure Summary: Patient tolerated procedure well. ASSESSMENT: abnormal uterine bleeding PLAN: Specimens labeled and sent to Pathology. Will notify patient of results in 1-2 weeks. Post-procedure instructions reviewed and written material given to the patient. Discussed will need DANDC, will await MRI results and EMB results to plan. And discussed IUD insertion at time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 membranes (PROM) in previous , currently 01/09/2015 10/26/2021 Overview: Delivered at 36 weeks last . Will start 17-OHP injections Obesity in 01/09/2015 09/17/2021 Last Assessment & Plan: She was 301 lb when she gave to her 15 month old and she dropped to 270 and now she is back to 293. She has been exercising with doing some cardio, for 20 mins at least daily., but is also studying, she is disgusted by her appearance and is embarrassed to be in public. She has not been eating too much , drinking pop once in 3 days, went over her diet a bit. She Is going to stop breast feeding today Normal , first 03/26/2012 09/04/19 14 Pelvic pain in 03/26/2012 014 Overview: 03/26/2012Patient states she had intercourse on March 23. She states she started spotting pink to red blood and cramping on March 25 in the evening. She denies any bleeding since early this morning. She is currently taking Flagyl for a BV infection. Patient is 17w5d. She states she started feeling movement one week ago. She denies any feeling any movement for the past 1-2 days. I scheduled the patient for an appointment with Dr. Morales to evaluate the pelvic pain and previous bleeding. History of UTI 03/26/2012 09/03/2013 Overview: 03/26/2012 Patient states she had a kidney infection in 2008 that was treated in the emergency room. Patient requested diagnostic testing 03/26/2012 06/22/2012 Overview: 03/26/2012 patient desires quad marker screen. Ordered at Dr. Morales's appointment today. Patient left without having the test done. Phone call made to patient. Message left to return to clinic for test History of infection 03/26/2012 09/03/2013 Overview: 03/26/2012 treated for BV infection with Flagyl by Dr. Fairchild March 13, 2012. documented as of this encounter (statuses as of 12/03/2021) [facility] History of Past illness Narrative* Problem Noted Date Resolved Date Supervision of high risk in third trim uzma 06/19/2015 09/17/2021 Anemia of in second trimester 06/05/20 15 09/17/2021 Abnormal glucose complicating 06/05/20 15 09/17/2021 [facility] 09/17/2021 History of premature rupture of membranes (PROM) in previous , currently 01/09/2015 10/26/2021 Overview: Delivered at 36 weeks last . Will start 17-OHP injections Obesity in 01/09/2015 09/17/2021 Last Assessment & Plan: She was 301 lb when she gave to her 15 month old and she dropped to 270 and now she is back to 293. She has been exercising with doing some cardio, for 20 mins at least daily., but is also studying, she is disgusted by her appearance and is embarrassed to be in public. She has not been eating too much , drinking pop once in 3 days, went over her diet a bit. She Is going to stop breast feeding today Normal , first 03/26/2012 09/04/19 14 Pelvic pain in 03/26/2012 014 Overview: 03/26/2012Patient states she had intercourse on March 23. She states she started spotting pink to red blood and cramping on March 25 in the evening. She denies any bleeding since early this morning. She is currently taking Flagyl for a BV infection. Patient is 17w5d. She states she started feeling movement one week ago. She denies any feeling any movement for the past 1-2 days. I scheduled the patient for an appointment with Dr. Morales to evaluate the pelvic pain and previous bleeding. History of UTI 03/26/2012 09/03/2013 Overview: 03/26/2012 Patient states she had a kidney infection in 2008 that was treated in the emergency room. Patient requested diagnostic testing 03/26/2012 06/22/2012 Overview: 03/26/2012 patient desires quad marker screen. Ordered at Dr. Morales's appointment today. Patient left without having the test done. Phone call made to patient. Message left to return to clinic for test History of infection 03/26/2012 09/03/2013 Overview: 03/26/2012 treated for BV infection with Flagyl by Dr. Fairchild March 13, 2012. documented as of this encounter (statuses as of 12/27/2021) [facility] History of Past illness Narrative* Problem Noted Date Resolved Date Supervision of high risk in third trim uzma 06/19/2015 09/17/2021 Anemia of in second trimester 06/05/20 15 09/17/2021 Abnormal glucose complicating 06/05/20 15 09/17/2021 Supervision of high risk in second tri mester 04/03/2015 09/17/2021 History of premature rupture of membranes (PROM) in previous , currently 01/09/2015 10/26/2021 Overview: Delivered at 36 weeks last . Will start 17-OHP injections Obesity in 01/09/2015 09/17/2021 Last Assessment & Plan: She was 301 lb when she gave to her 15 month old and she dropped to 270 and now she is back to 293. She has been exercising with doing some cardio, for 20 mins at least daily., but is also studying, she is disgusted by her appearance and is embarrassed to be in public. She has not been eating too much , drinking pop once in 3 days, went over her diet a bit. She Is going to stop breast feeding today Normal , first 03/26/2012 09/04/19 14 Pelvic pain in 03/26/2012 014 Overview: 03/26/2012Patient states she had intercourse on March 23. She states she started spotting pink to red blood and cramping on March 25 in the evening. She denies any bleeding since early this morning. She is currently taking Flagyl for a BV infection. Patient is 17w5d. She states she started feeling movement one week ago. She denies any feeling any movement for the past 1-2 days. I scheduled the patient for an appointment with Dr. Morales to evaluate the pelvic pain and previous bleeding. History of UTI 03/26/2012 09/03/2013 Overview: 03/26/2012 Patient states she had a kidney infection in 2008 that was treated in the emergency room. Patient requested diagnostic testing 03/26/2012 06/22/2012 Overview: 03/26/2012 patient desires quad marker screen. Ordered at Dr. Morales's appointment today. Patient left without having the test done. Phone call made to patient. Message left to return to clinic for test History of infection 03/26/2012 09/03/2013 Overview: 03/26/2012 treated for BV infection with Flagyl by Dr. Fairchild March 13, 2012. documented as of this encounter (statuses as of 02/13/2022) [facility] History of Past illness Narrative* Problem Noted Date Resolved Date Supervision of high risk in third trim uzma 06/19/2015 09/17/2021 Anemia of in second trimester 06/05/20 15 09/17/2021 Abnormal glucose complicating 06/05/20 15 09/17/2021 Supervision of high risk in second tri mester 04/03/2015 09/17/2021 History of premature rupture of membranes (PROM) in previous , currently 01/09/2015 10/26/2021 Overview: Delivered at 36 weeks last . Will start 17-OHP injections Obesity in 01/09/2015 09/17/2021 Last Assessment & Plan: She was 301 lb when she gave to her 15 month old and she dropped to 270 and now she is back to 293. She has been exercising with doing some cardio, for 20 mins at least daily., but is also studying, she is disgusted by her appearance and is embarrassed to be in public. She has not been eating too much , drinking pop once in 3 days, went over her diet a bit. She Is going to stop breast feeding today Normal , first 03/26/2012 09/04/19 14 Pelvic pain in 03/26/2012 014 Overview: 03/26/2012Patient states she had intercourse on March 23. She states she started spotting pink to red blood and cramping on March 25 in the evening. She denies any bleeding since early this morning. She is currently taking Flagyl for a BV infection. Patient is 17w5d. She states she started feeling movement one week ago. She denies any feeling any movement for the past 1-2 days. I scheduled the patient for an appointment with Dr. Morales to evaluate the pelvic pain and previous bleeding. History of UTI 03/26/2012 09/03/2013 Overview: 03/26/2012 Patient states she had a kidney infection in 2008 that was treated in the emergency room. Patient requested diagnostic testing 03/26/2012 06/22/2012 Overview: 03/26/2012 patient desires quad marker screen. Ordered at Dr. Morales's appointment today. Patient left without having the test done. Phone call made to patient. Message left to return to clinic for test History of infection 03/26/2012 09/03/2013 Overview: 03/26/2012 treated for BV infection with Flagyl by Dr. Fairchild March 13, 2012. documented as of this encounter (statuses as of 06/26/2022) [facility] History of Past illness Narrative* Problem Noted Date Resolved Date Supervision of high risk in third trim uzma 06/19/2015 09/17/2021 Anemia of in second trimester 06/05/20 15 09/17/2021 Abnormal glucose complicating 06/05/20 15 09/17/2021 Supervision of high risk in second tri mester 04/03/2015 09/17/2021 History of premature rupture of membranes (PROM) in previous , currently 01/09/2015 10/26/2021 Overview: Delivered at 36 weeks last . Will start 17-OHP injections Obesity in 01/09/2015 09/17/2021 Last Assessment & Plan: She was 301 lb when she gave to her 15 month old and she dropped to 270 and now she is back to 293. She has been exercising with doing some cardio, for 20 mins at least daily., but is also studying, she is disgusted by her appearance and is embarrassed to be in public. She has not been eating too much , drinking pop once in 3 days, went over her diet a bit. She Is going to stop breast feeding today Normal , first 03/26/2012 09/04/19 14 Pelvic pain in 03/26/2012 014 Overview: 03/26/2012Patient states she had intercourse on March 23. She states she started spotting pink to red blood and cramping on March 25 in the evening. She denies any bleeding since early this morning. She is currently taking Flagyl for a BV infection. Patient is 17w5d. She states she started feeling movement one week ago. She denies any feeling any movement for the past 1-2 days. I scheduled the patient for an appointment with Dr. Morales to evaluate the pelvic pain and previous bleeding. History of UTI 03/26/2012 09/03/2013 Overview: 03/26/2012 Patient states she had a kidney infection in 2008 that was treated in the emergency room. Patient requested diagnostic testing 03/26/2012 06/22/2012 Overview: 03/26/2012 patient desires quad marker screen. Ordered at Dr. Morales's appointment today. Patient left without having the test done. Phone call made to patient. Message left to return to clinic for test History of infection 03/26/2012 09/03/2013 Overview: 03/26/2012 treated for BV infection with Flagyl by Dr. Fairchild March 13, 2012. documented as of this encounter (statuses as of 06/27/2022) [facility] History of Past illness Narrative* Problem Noted Date Resolved Date Supervision of high risk in third trim uzma 06/19/2015 09/17/2021 Anemia of in second trimester 06/05/20 15 09/17/2021 Abnormal glucose complicating 06/05/20 15 09/17/2021 [facility] 09/17/2021 History of premature rupture of membranes (PROM) in previous , currently 01/09/2015 10/26/2021 Overview: Delivered at 36 weeks last . Will start 17-OHP injections Obesity in 01/09/2015 09/17/2021 Last Assessment & Plan: She was 301 lb when she gave to her 15 month old and she dropped to 270 and now she is back to 293. She has been exercising with doing some cardio, for 20 mins at least daily., but is also studying, she is disgusted by her appearance and is embarrassed to be in public. She has not been eating too much , drinking pop once in 3 days, went over her diet a bit. She Is going to stop breast feeding today Normal , first 03/26/2012 09/04/19 14 Pelvic pain in 03/26/2012 014 Overview: 03/26/2012Patient states she had intercourse on March 23. She states she started spotting pink to red blood and cramping on March 25 in the evening. She denies any bleeding since early this morning. She is currently taking Flagyl for a BV infection. Patient is 17w5d. She states she started feeling movement one week ago. She denies any feeling any movement for the past 1-2 days. I scheduled the patient for an appointment with Dr. Morales to evaluate the pelvic pain and previous bleeding. History of UTI 03/26/2012 09/03/2013 Overview: 03/26/2012 Patient states she had a kidney infection in 2008 that was treated in the emergency room. Patient requested diagnostic testing 03/26/2012 06/22/2012 Overview: 03/26/2012 patient desires quad marker screen. Ordered at Dr. Morales's appointment today. Patient left without having the test done. Phone call made to patient. Message left to return to clinic for test History of infection 03/26/2012 09/03/2013 Overview: 03/26/2012 treated for BV infection with Flagyl by Dr. Fairchild March 13, 2012. documented as of this encounter (statuses as of 06/27/2022) [facility] History of Past illness Narrative* Problem Noted Date Resolved Date Supervision of high risk in third trim uzma 06/19/2015 09/17/2021 Anemia of in second trimester 06/05/20 15 09/17/2021 Abnormal glucose complicating 06/05/20 15 09/17/2021 Supervision of high risk in second tri mester 04/03/2015 09/17/2021 History of premature rupture of membranes (PROM) in previous , currently 01/09/2015 10/26/2021 Overview: Delivered at 36 weeks last . Will start 17-OHP injections Obesity in 01/09/2015 09/17/2021 Last Assessment & Plan: She was 301 lb when she gave to her 15 month old and she dropped to 270 and now she is back to 293. She has been exercising with doing some cardio, for 20 mins at least daily., but is also studying, she is disgusted by her appearance and is embarrassed to be in public. She has not been eating too much , drinking pop once in 3 days, went over her diet a bit. She Is going to stop breast feeding today Normal , first 03/26/2012 09/04/19 14 Pelvic pain in 03/26/2012 014 Overview: 03/26/2012Patient states she had intercourse on March 23. She states she started spotting pink to red blood and cramping on March 25 in the evening. She denies any bleeding since early this morning. She is currently taking Flagyl for a BV infection. Patient is 17w5d. She states she started feeling movement one week ago. She denies any feeling any movement for the past 1-2 days. I scheduled the patient for an appointment with Dr. Morales to evaluate the pelvic pain and previous bleeding. History of UTI 03/26/2012 09/03/2013 Overview: 03/26/2012 Patient states she had a kidney infection in 2008 that was treated in the emergency room. Patient requested diagnostic testing 03/26/2012 06/22/2012 Overview: 03/26/2012 patient desires quad marker screen. Ordered at Dr. Morales's appointment today. Patient left without having the test done. Phone call made to patient. Message left to return to clinic for test History of infection 03/26/2012 09/03/2013 Overview: 03/26/2012 treated for BV infection with Flagyl by Dr. Fairchild March 13, 2012. documented as of this encounter (statuses as of 06/27/2022) [facility] History of Past illness Narrative* Problem Noted Date Resolved Date Supervision of high risk in third trim uzma 06/19/2015 09/17/2021 Anemia of in second trimester 06/05/20 15 09/17/2021 Abnormal glucose complicating 06/05/20 15 09/17/2021 Supervision of high risk in second tri mester 04/03/2015 09/17/2021 History of premature rupture of membranes (PROM) in previous , currently 01/09/2015 10/26/2021 Overview: Delivered at 36 weeks last . Will start 17-OHP injections Obesity in 01/09/2015 09/17/2021 Last Assessment & Plan: She was 301 lb when she gave to her 15 month old and she dropped to 270 and now she is back to 293. She has been exercising with doing some cardio, for 20 mins at least daily., but is also studying, she is disgusted by her appearance and is embarrassed to be in public. She has not been eating too much , drinking pop once in 3 days, went over her diet a bit. She Is going to stop breast feeding today Normal , first 03/26/2012 09/04/19 14 Pelvic pain in 03/26/2012 014 Overview: 03/26/2012Patient states she had intercourse on March 23. She states she started spotting pink to red blood and cramping on March 25 in the evening. She denies any bleeding since early this morning. She is currently taking Flagyl for a BV infection. Patient is 17w5d. She states she started feeling movement one week ago. She denies any feeling any movement for the past 1-2 days. I scheduled the patient for an appointment with Dr. Morales to evaluate the pelvic pain and previous bleeding. History of UTI 03/26/2012 09/03/2013 Overview: 03/26/2012 Patient states she had a kidney infection in 2008 that was treated in the emergency room. Patient requested diagnostic testing 03/26/2012 06/22/2012 Overview: 03/26/2012 patient desires quad marker screen. Ordered at Dr. Morales's appointment today. Patient left without having the test done. Phone call made to patient. Message left to return to clinic for test History of infection 03/26/2012 09/03/2013 Overview: 03/26/2012 treated for BV infection with Flagyl by Dr. Fairchild March 13, 2012. documented as of this encounter (statuses as of 08/27/2022) [facility] History of Past illness Narrative* Problem Noted Date Resolved Date Supervision of high risk in third trim uzma 06/19/2015 09/17/2021 Anemia of in second trimester 06/05/20 15 09/17/2021 Abnormal glucose complicating 06/05/20 15 09/17/2021 Supervision of high risk in second tri mester 04/03/2015 09/17/2021 History of premature rupture of membranes (PROM) in previous , currently 01/09/2015 10/26/2021 Overview: Delivered at 36 weeks last . Will start 17-OHP injections Obesity in 01/09/2015 09/17/2021 Last Assessment & Plan: She was 301 lb when she gave to her 15 month old and she dropped to 270 and now she is back to 293. She has been exercising with doing some cardio, for 20 mins at least daily., but is also studying, she is disgusted by her appearance and is embarrassed to be in public. She has not been eating too much , drinking pop once in 3 days, went over her diet a bit. She Is going to stop breast feeding today Normal , first 03/26/2012 09/04/19 14 Pelvic pain in 03/26/2012 014 Overview: 03/26/2012Patient states she had intercourse on March 23. She states she started spotting pink to red blood and cramping on March 25 in the evening. She denies any bleeding since early this morning. She is currently taking Flagyl for a BV infection. Patient is 17w5d. She states she started feeling movement one week ago. She denies any feeling any movement for the past 1-2 days. I scheduled the patient for an appointment with Dr. Morales to evaluate the pelvic pain and previous bleeding. History of UTI 03/26/2012 09/03/2013 Overview: 03/26/2012 Patient states she had a kidney infection in 2008 that was treated in the emergency room. Patient requested diagnostic testing 03/26/2012 06/22/2012 Overview: 03/26/2012 patient desires quad marker screen. Ordered at Dr. Morales's appointment today. Patient left without having the test done. Phone call made to patient. Message left to return to clinic for test History of infection 03/26/2012 09/03/2013 Overview: 03/26/2012 treated for BV infection with Flagyl by Dr. Fairchild March 13, 2012. documented as of this encounter (statuses as of 08/28/2022) [facility] History of Past illness Narrative* Problem Noted Date Resolved Date Supervision of high risk in third trim uzma 06/19/2015 09/17/2021 Anemia of in second trimester 06/05/20 15 09/17/2021 Abnormal glucose complicating 06/05/20 15 09/17/2021 [facility] 09/17/2021 History of premature rupture of membranes (PROM) in previous , currently 01/09/2015 10/26/2021 Overview: Delivered at 36 weeks last . Will start 17-OHP injections Obesity in 01/09/2015 09/17/2021 Last Assessment & Plan: She was 301 lb when she gave to her 15 month old and she dropped to 270 and now she is back to 293. She has been exercising with doing some cardio, for 20 mins at least daily., but is also studying, she is disgusted by her appearance and is embarrassed to be in public. She has not been eating too much , drinking pop once in 3 days, went over her diet a bit. She Is going to stop breast feeding today Normal , first 03/26/2012 09/04/19 14 Pelvic pain in 03/26/2012 014 Overview: 03/26/2012Patient states she had intercourse on March 23. She states she started spotting pink to red blood and cramping on March 25 in the evening. She denies any bleeding since early this morning. She is currently taking Flagyl for a BV infection. Patient is 17w5d. She states she started feeling movement one week ago. She denies any feeling any movement for the past 1-2 days. I scheduled the patient for an appointment with Dr. Morales to evaluate the pelvic pain and previous bleeding. History of UTI 03/26/2012 09/03/2013 Overview: 03/26/2012 Patient states she had a kidney infection in 2008 that was treated in the emergency room. Patient requested diagnostic testing 03/26/2012 06/22/2012 Overview: 03/26/2012 patient desires quad marker screen. Ordered at Dr. Morales's appointment today. Patient left without having the test done. Phone call made to patient. Message left to return to clinic for test History of infection 03/26/2012 09/03/2013 Overview: 03/26/2012 treated for BV infection with Flagyl by Dr. Fairchild March 13, 2012. documented as of this encounter (statuses as of 09/10/2022) [facility] History of Past illness Narrative* Problem Noted Date Diagnosed Date Resolved Date Supervision of high risk pre gnancy in third trimester 06/19/2015 09/17/2021 Anemia of in second trimester 06/05/2015 09/17/2021 Abnormal glucose complicating 06/05/2015 09/17/2021 Supervision of high risk pre gnancy in second trimester 04/03/2015 09/17/2021 History of premature rupture of membranes (PROM) in previous , currently 01/09/2015 10/26/2021 Overview: Delivered at 36 weeks last . Will start 17-OHP injections Obesity in 01/09/2015 022 Last Assessment & Plan: She was 301 lb when she gave to her 15 month old and she dropped to 270 and now she is back to 293. She has been exercising with doing some cardio, for 20 mins at least daily., but is also studying, she is disgusted by her appearance and is embarrassed to be in public. She has not been eating too much , drinking pop once in 3 days, went over her diet a bit. She Is going to stop breast feeding today Normal , first 03/26/201208/15 Pelvic pain in 03/26/2012 Overview: 03/26/2012Patient states she had intercourse on March 23. She states she started spotting pink to red blood and cramping on March 25 in the evening. She denies any bleeding since early this morning. She is currently taking Flagyl for a BV infection. Patient is 17w5d. She states she started feeling movement one week ago. She denies any feeling any movement for the past 1-2 days. I scheduled the patient for an appointment with Dr. Morales to evaluate the pelvic pain and previous bleeding. History of UTI 03/26/2012 09/03/2013 Overview: 03/26/2012 Patient states she had a kidney infection in 2008 that was treated in the emergency room. Patient requested diagnostic testing 03/26/2012 06/22/2012 Overview: 03/26/2012 patient desires quad marker screen. Ordered at Dr. Morales's appointment today. Patient left without having the test done. Phone call made to patient. Message left to return to clinic for test History of infection 03/26/2012 014 Overview: 03/26/2012 treated for BV infection with Flagyl by Dr. Fairchild March 13, 2012. documented as of this encounter (statuses as of 03/26/2023) [facility] History of Past illness Narrative* Problem Noted Date Diagnosed Date Resolved Date Supervision of high risk pre gnancy in third trimester 06/19/2015 09/17/2021 Anemia of in second trimester 06/05/2015 09/17/2021 Abnormal glucose complicating 06/05/2015 09/17/2021 Supervision of high risk pre gnancy in second trimester 04/03/2015 09/17/2021 History of premature rupture of membranes (PROM) in previous , currently 01/09/2015 10/26/2021 Overview: Delivered at 36 weeks last . Will start 17-OHP injections Obesity in 01/09/2015 022 Last Assessment & Plan: She was 301 lb when she gave to her 15 month old and she dropped to 270 and now she is back to 293. She has been exercising with doing some cardio, for 20 mins at least daily., but is also studying, she is disgusted by her appearance and is embarrassed to be in public. She has not been eating too much , drinking pop once in 3 days, went over her diet a bit. She Is going to stop breast feeding today Normal , first 03/26/201208/15 Pelvic pain in 03/26/2012 Overview: 03/26/2012Patient states she had intercourse on March 23. She states she started spotting pink to red blood and cramping on March 25 in the evening. She denies any bleeding since early this morning. She is currently taking Flagyl for a BV infection. Patient is 17w5d. She states she started feeling movement one week ago. She denies any feeling any movement for the past 1-2 days. I scheduled the patient for an appointment with Dr. Morales to evaluate the pelvic pain and previous bleeding. History of UTI 03/26/2012 09/03/2013 Overview: 03/26/2012 Patient states she had a kidney infection in 2008 that was treated in the emergency room. Patient requested diagnostic testing 03/26/2012 06/22/2012 Overview: 03/26/2012 patient desires quad marker screen. Ordered at Dr. Morales's appointment today. Patient left without having the test done. Phone call made to patient. Message left to return to clinic for test History of infection 03/26/2012 014 Overview: 03/26/2012 treated for BV infection with Flagyl by Dr. Fairchild March 13, 2012. documented as of this encounter (statuses as of 03/28/2023) [facility] History of Past illness Narrative* Problem Noted Date Diagnosed Date Resolved Date Supervision of high risk pre gnancy in third trimester 06/19/2015 09/17/2021 Anemia of in second trimester 06/05/2015 09/17/2021 Abnormal glucose complicating 06/05/2015 09/17/2021 Supervision of high risk pre gnancy in second trimester 04/03/2015 09/17/2021 History of premature rupture of membranes (PROM) in previous , currently 01/09/2015 10/26/2021 Overview: Delivered at 36 weeks last . Will start 17-OHP injections Obesity in 01/09/2015 022 Last Assessment & Plan: She was 301 lb when she gave to her 15 month old and she dropped to 270 and now she is back to 293. She has been exercising with doing some cardio, for 20 mins at least daily., but is also studying, she is disgusted by her appearance and is embarrassed to be in public. She has not been eating too much , drinking pop once in 3 days, went over her diet a bit. She Is going to stop breast feeding today Normal , first 03/26/201208/15 Pelvic pain in 03/26/2012 Overview: 03/26/2012Patient states she had intercourse on March 23. She states she started spotting pink to red blood and cramping on March 25 in the evening. She denies any bleeding since early this morning. She is currently taking Flagyl for a BV infection. Patient is 17w5d. She states she started feeling movement one week ago. She denies any feeling any movement for the past 1-2 days. I scheduled the patient for an appointment with Dr. Morales to evaluate the pelvic pain and previous bleeding. History of UTI 03/26/2012 09/03/2013 Overview: 03/26/2012 Patient states she had a kidney infection in 2008 that was treated in the emergency room. Patient requested diagnostic testing 03/26/2012 06/22/2012 Overview: 03/26/2012 patient desires quad marker screen. Ordered at Dr. Morales's appointment today. Patient left without having the test done. Phone call made to patient. Message left to return to clinic for test History of infection 03/26/2012 014 Overview: 03/26/2012 treated for BV infection with Flagyl by Dr. Fairchild March 13, 2012. documented as of this encounter (statuses as of 04/03/2023) [facility] History of Past illness Narrative* Problem Noted Date Diagnosed Date Resolved Date Supervision of high risk pre gnancy in third trimester 06/19/2015 09/17/2021 Anemia of in second trimester 06/05/2015 09/17/2021 Abnormal glucose complicating 06/05/2015 09/17/2021 Supervision of high risk pre gnancy in second trimester 04/03/2015 09/17/2021 History of premature rupture of membranes (PROM) in previous , currently 01/09/2015 10/26/2021 Overview: Delivered at 36 weeks last . Will start 17-OHP injections Obesity in 01/09/2015 022 Last Assessment & Plan: She was 301 lb when she gave to her 15 month old and she dropped to 270 and now she is back to 293. She has been exercising with doing some cardio, for 20 mins at least daily., but is also studying, she is disgusted by her appearance and is embarrassed to be in public. She has not been eating too much , drinking pop once in 3 days, went over her diet a bit. She Is going to stop breast feeding today Normal , first 03/26/201208/15 Pelvic pain in 03/26/2012 Overview: 03/26/2012Patient states she had intercourse on March 23. She states she started spotting pink to red blood and cramping on March 25 in the evening. She denies any bleeding since early this morning. She is currently taking Flagyl for a BV infection. Patient is 17w5d. She states she started feeling movement one week ago. She denies any feeling any movement for the past 1-2 days. I scheduled the patient for an appointment with Dr. Morales to evaluate the pelvic pain and previous bleeding. History of UTI 03/26/2012 09/03/2013 Overview: 03/26/2012 Patient states she had a kidney infection in 2008 that was treated in the emergency room. Patient requested diagnostic testing 03/26/2012 06/22/2012 Overview: 03/26/2012 patient desires quad marker screen. Ordered at Dr. Morales's appointment today. Patient left without having the test done. Phone call made to patient. Message left to return to clinic for test History of infection 03/26/2012 014 Overview: 03/26/2012 treated for BV infection with Flagyl by Dr. Fairchild March 13, 2012. documented as of this encounter (statuses as of 04/22/2023) [facility] History of Past illness Narrative* Problem Noted Date Diagnosed Date Resolved Date Supervision of high risk pre gnancy in third trimester 06/19/2015 09/17/2021 Anemia of in second trimester 06/05/2015 09/17/2021 Abnormal glucose complicating 06/05/2015 09/17/2021 Supervision of high risk pre gnancy in second trimester 04/03/2015 09/17/2021 History of premature rupture of membranes (PROM) in previous , currently 01/09/2015 10/26/2021 Overview: Delivered at 36 weeks last . Will start 17-OHP injections Obesity in 01/09/2015 022 Last Assessment & Plan: She was 301 lb when she gave to her 15 month old and she dropped to 270 and now she is back to 293. She has been exercising with doing some cardio, for 20 mins at least daily., but is also studying, she is disgusted by her appearance and is embarrassed to be in public. She has not been eating too much , drinking pop once in 3 days, went over her diet a bit. She Is going to stop breast feeding today Normal , first 03/26/201208/15 Pelvic pain in 03/26/2012 Overview: 03/26/2012Patient states she had intercourse on March 23. She states she started spotting pink to red blood and cramping on March 25 in the evening. She denies any bleeding since early this morning. She is currently taking Flagyl for a BV infection. Patient is 17w5d. She states she started feeling movement one week ago. She denies any feeling any movement for the past 1-2 days. I scheduled the patient for an appointment with Dr. Morales to evaluate the pelvic pain and previous bleeding. History of UTI 03/26/2012 09/03/2013 Overview: 03/26/2012 Patient states she had a kidney infection in 2008 that was treated in the emergency room. Patient requested diagnostic testing 03/26/2012 06/22/2012 Overview: 03/26/2012 patient desires quad marker screen. Ordered at Dr. Morales's appointment today. Patient left without having the test done. Phone call made to patient. Message left to return to clinic for test History of infection 03/26/2012 014 Overview: 03/26/2012 treated for BV infection with Flagyl by Dr. Fairchild March 13, 2012. documented as of this encounter (statuses as of 04/30/2023) [facility] History of Past illness Narrative* Problem Noted Date Diagnosed Date Resolved Date Supervision of high risk pre gnancy in third trimester 06/19/2015 09/17/2021 Anemia of in second trimester 06/05/2015 09/17/2021 Abnormal glucose complicating 06/05/2015 09/17/2021 Supervision of high risk pre gnancy in second trimester 04/03/2015 09/17/2021 History of premature rupture of membranes (PROM) in previous , currently 01/09/2015 10/26/2021 Overview: Delivered at 36 weeks last . Will start 17-OHP injections Obesity in 01/09/2015 022 Last Assessment & Plan: She was 301 lb when she gave to her 15 month old and she dropped to 270 and now she is back to 293. She has been exercising with doing some cardio, for 20 mins at least daily., but is also studying, she is disgusted by her appearance and is embarrassed to be in public. She has not been eating too much , drinking pop once in 3 days, went over her diet a bit. She Is going to stop breast feeding today Normal , first 03/26/201208/15 Pelvic pain in 03/26/2012 Overview: 03/26/2012Patient states she had intercourse on March 23. She states she started spotting pink to red blood and cramping on March 25 in the evening. She denies any bleeding since early this morning. She is currently taking Flagyl for a BV infection. Patient is 17w5d. She states she started feeling movement one week ago. She denies any feeling any movement for the past 1-2 days. I scheduled the patient for an appointment with Dr. Morales to evaluate the pelvic pain and previous bleeding. History of UTI 03/26/2012 09/03/2013 Overview: 03/26/2012 Patient states she had a kidney infection in 2008 that was treated in the emergency room. Patient requested diagnostic testing 03/26/2012 06/22/2012 Overview: 03/26/2012 patient desires quad marker screen. Ordered at Dr. Morales's appointment today. Patient left without having the test done. Phone call made to patient. Message left to return to clinic for test History of infection 03/26/2012 014 Overview: 03/26/2012 treated for BV infection with Flagyl by Dr. Fairchild March 13, 2012. documented as of this encounter (statuses as of 05/06/2023) [facility] History of Past illness Narrative* Problem Noted Date Diagnosed Date Resolved Date Supervision of high risk pre gnancy in third trimester 06/19/2015 09/17/2021 Anemia of in second trimester 06/05/2015 09/17/2021 Abnormal glucose complicating 06/05/2015 09/17/2021 Supervision of high risk pre gnancy in second trimester 04/03/2015 09/17/2021 History of premature rupture of membranes (PROM) in previous , currently 01/09/2015 10/26/2021 Overview: Delivered at 36 weeks last . Will start 17-OHP injections Obesity in 01/09/2015 022 Last Assessment & Plan: She was 301 lb when she gave to her 15 month old and she dropped to 270 and now she is back to 293. She has been exercising with doing some cardio, for 20 mins at least daily., but is also studying, she is disgusted by her appearance and is embarrassed to be in public. She has not been eating too much , drinking pop once in 3 days, went over her diet a bit. She Is going to stop breast feeding today Normal , first 03/26/201208/15 Pelvic pain in 03/26/2012 Overview: 03/26/2012Patient states she had intercourse on March 23. She states she started spotting pink to red blood and cramping on March 25 in the evening. She denies any bleeding since early this morning. She is currently taking Flagyl for a BV infection. Patient is 17w5d. She states she started feeling movement one week ago. She denies any feeling any movement for the past 1-2 days. I scheduled the patient for an appointment with Dr. Morales to evaluate the pelvic pain and previous bleeding. History of UTI 03/26/2012 09/03/2013 Overview: 03/26/2012 Patient states she had a kidney infection in 2008 that was treated in the emergency room. Patient requested diagnostic testing 03/26/2012 06/22/2012 Overview: 03/26/2012 patient desires quad marker screen. Ordered at Dr. Morales's appointment today. Patient left without having the test done. Phone call made to patient. Message left to return to clinic for test History of infection 03/26/2012 014 Overview: 03/26/2012 treated for BV infection with Flagyl by Dr. Fairchild March 13, 2012. documented as of this encounter (statuses as of 05/16/2023) [facility] Abnormal uterine bleeding (AUB)- Primary PCOS (polycystic ovarian syndrome) Polycystic ovaries Class 3 severe obesity due to excess calories without serious comorbidity with body mass index (BMI) of 50.0 to 59.9 in adult ([facility]) [facility] Diagnosis Obesity, Class III, BMI 40-49.9 (morbid obesity) ([facility])- Primary Morbid obesity PCOS (polycystic ovarian syndrome) Polycystic ovaries High triglycerides Pure hyperglyceridemia [facility] Diagnosis BMI 50.0-59.9, adult ([facility])- Primary Body Mass Index 50.0-59.9, adult PCOS (polycystic ovarian syndrome) Polycystic ovaries Weight loss counseling, encounter for Dietary surveillance and counseling Prediabetes Other abnormal glucose [facility] Diagnosis Abnormal uterine bleeding (AUB)- Primary PCOS (polycystic ovarian syndrome) Polycystic ovaries Class 3 severe obesity due to excess calories without serious comorbidity with body mass index (BMI) of 50.0 to 59.9 in adult ([facility]) Abnormal ultrasound of uterus Nonspecific (abnormal) findings on radiological and other examination of genitourinary organs Dyspareunia, female Dyspareunia Elevated BP without diagnosis of hypertension History of migraine with aura Personal history of other disorders of nervous system and sense organs 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 [facility] Diagnosis Prediabetes- Primary Other abnormal glucose Screening for thyroid disorder Morbid obesity with BMI of 50.0-59.9, adult ([facility]) Morbid obesity Metabolic syndrome Dysmetabolic Syndrome X PCOS (polycystic ovarian syndrome) Polycystic ovaries High triglycerides Pure hyperglyceridemia Obesity, Class III, BMI 40-49.9 (morbid obesity) ([facility]) Morbid obesity Attention deficit disorder (ADD) in adult [facility] Diagnosis Attention deficit disorder (ADD) in adult [facility] Diagnosis NO SHOW- Primary [facility]* Diagnosis Well adult exam- Primary Routine general medical examination at a health care facility Attention deficit disorder (ADD) in adult Prediabetes Other abnormal glucose High triglycerides Pure hyperglyceridemia PCOS (polycystic ovarian syndrome) Polycystic ovaries Insulin resistance Dysmetabolic Syndrome X Migraine Migraine, unspecified, without mention of intractable migraine without mention of status migrainosus Special screening examination for viral disease Special screening examination for unspecified viral disease Screening for thyroid disorder Migraine with aura and without status migrainosus, not intractable Migraine with aura, without mention of intractable migraine without mention of status migrainosus [facility] Diagnosis New onset type 2 diabetes mellitus (HCC)- Primary Well adult exam Routine general medical examination at a health care facility Morbid obesity with BMI of 50.0-59.9, adult ([facility]) Morbid obesity PCOS (polycystic ovarian syndrome) Polycystic ovaries [facility]* Diagnosis Poorly controlled type 2 diabetes mellitus (HCC)- Primary Type II or unspecified type diabetes mellitus without mention of complication, not stated as uncontrolled High serum cortisol [facility] Diagnosis Attention deficit disorder (ADD) in adult [facility] Diagnosis Attention deficit disorder (ADD) in adult [facility]* Diagnosis Attention deficit hyperactivity disorder (ADHD), unspecified ADHD type- Primary Other migraine without status migrainosus, not intractable Elevated BP without diagnosis of hypertension Insulin resistance Dysmetabolic Syndrome X [facility] Diagnosis BMI 50.0-59.9, adult (HCC) Body Mass Index 50.0-59.9, adult Poorly controlled type 2 diabetes mellitus (HCC) Type II or unspecified type diabetes mellitus without mention of complication, not stated as uncontrolled Insulin resistance Dysmetabolic Syndrome X documented in this encounter [facility] note* Diagnosis Attention deficit disorder (ADD) in adult [facility] Diagnosis Attention deficit disorder (ADD) in adult- Primary Insulin resistance Dysmetabolic Syndrome X Vitamin D deficiency Unspecified vitamin D deficiency Weight gain Abnormal weight gain Family history of thyroid disease Family history of other endocrine and metabolic diseases Hair thinning Alopecia, unspecified Other fatigue Chest pain, unspecified type documented in this encounter [facility] note* Diagnosis BMI 50.0-59.9, adult ([facility]) Body Mass Index 50.0-59.9, adult Poorly controlled type 2 diabetes mellitus (HCC) Type II or unspecified type diabetes mellitus without mention of complication, not stated as uncontrolled Insulin resistance Dysmetabolic Syndrome X documented in this encounter [facility] note* Diagnosis Pelvic pain in female Unspecified symptom associated with female genital organs documented in this encounter [facility] note* Diagnosis Elevated LFTs- Primary Other abnormal blood chemistry Vitamin D insufficiency Unspecified vitamin D deficiency Attention deficit disorder (ADD) in adult Insulin resistance Dysmetabolic Syndrome X Thickened endometrium Nonspecific (abnormal) findings on radiological and other examination of genitourinary organs Controlled type 2 diabetes mellitus without complication, without long-term current use of insulin (HCC) BMI 50.0-59.9, adult ([facility]) Body Mass Index 50.0-59.9, adult Depression with anxiety Dysthymic disorder [facility] Diagnosis Pelvic and perineal pain- Primary Unspecified symptom associated with female genital organs Abnormal uterine bleeding (AUB) Thickened endometrium Nonspecific (abnormal) findings on radiological and other examination of genitourinary organs documented in this encounter [facility] for referral (narrative)* Outpatient Procedure (Routine) - Pending Review Specialty Diagnoses / Procedures Referred By Marie castro Referred To [facility] Diagnoses Chest pain, unspecified type Procedures ECG COMPLETE ECG ROUTINE ECG W/LEAST 12 LDS W/I&R Mary Avila PA-C [address] [place] [address] [facility] [address] [place] [address] Referral ID Status Reason Start Date Expiration Date Visits Requested Visits Authorized [id number] Pending Review Auto-Generat ed Referral 3 04/01/2024 1 1 [facility] for referral (narrative)* Diagnostic Procedure Only (Routine) - Closed Specialty Diagnoses / Procedures Referred By Contshell t Referred To Contact US IMAGING Diagnoses Pelvic pain in female Procedures US FEMALE PELVIS TRANSVAG US TRANSVAGINAL Elena Godfrey APRN.CNM [address] [place] [address] [place] [address] Referral ID Status Reason Start Date Expiration Date V isits Requested Visits Authorized [id number] Closed Auto-Generate d Referral 04/24/2023 05/23/2024 1 1 [facility] for referral (narrative)* Outpatient Procedure (Routine) - Authorized Specialty Diagnoses / Procedures Referred By Marie castro Referred To Contact [facility] Diagnoses Abnormal uterine bleeding (AUB) Procedures ENDOMETRIAL BIOPSY ENDOMETRIAL BX W/WO ENDOCERVIX BX W/O DILAT SPX Elena Godfrey APRN.CNM [address] [place] [address] [facility] [address] [place] [address] Referral ID Status Reason Start Date Expiration Date Visits Requested Visits Authorized [id number] Authorized Auto-Generat ed Referral 3 06/15/2023 1 1 * MRI/CT (Routine) - Waiting for Online Response Specialty Diagnoses / Procedures Referred By Marie t Referred To Contact MR IMAGING Diagnoses Pelvic and perineal pain Procedures MRI FEMALE PELVIS WO/W IVCON MRI PELVIS W/O & W/CONTRAST MATERIAL Elena Godfrey APRN.CNM [address] [place] [address] [place] [address] Referral ID Status Reason Start Date Expiration Date Visits Requested Visits Authorized [id number] Waiting for Online Response Auto-Generat ed Referral 3 06/10/2024 1 1 [facility] Summary Purpose Family History No Family History Records FoundNo Family History Records FoundNo Family History Records Found Advance Directives No Advanced Directives Records FoundNo Advanced Directives Records FoundNo Advanced Directives Records Found Reason for Referral Specialty Diagnoses / Procedures Referred By Marie t Referred To Contact Diagnoses Class 3 severe obesity due to excess calories without serious comorbidity with body mass index (BMI) of 50.0 to 59.9 in adult (HCC) Procedures CONSULT BARIATRIC/METABOLIC INSTITUTE OFFICE/OUTPATIENT [facility] 60-74 MINUTES Elena Godfrey APRN.CNM [address] [place] [address] Referral ID Status Reason Start Date Expiration Date Visits Requested Visits Authorized [id number] Pending Review PCP Requested Referral 09/10/2021 09/10/2022 1 1 Specialty Diagnoses / Procedures Referred By Marie t Referred To Contact Endocrinology Diagnoses PCOS (polycystic ovarian syndrome) Procedures CONSULT TO ENDOCRINOLOGY OFFICE/OUTPATIENT [facility] 60-74 MINUTES Elena Godfrey APRN.CNM [address] [place] [address] Referral ID Status Reason Start Date Expiration Date Visits Requested Visits Authorized [id number] Pending Review PCP Requested Referral 09/10/2021 09/10/2022 1 1 Specialty Diagnoses / Procedures Referred By Raghavendraac t Referred To Contact [facility] Diagnoses Abnormal uterine bleeding (AUB) Procedures ENDOMETRIAL BIOPSY ENDOMETRIAL BX W/WO ENDOCERVIX BX W/O DILAT SPX Elena Godfrey APRN.CNM [address] [place] [address] [facility] [address] [place] [address] Referral ID Status Reason Start Date Expiration Date Visits Requested Visits Authorized [id number] Pending Review Auto-Generat ed Referral 09/10/2021 09/10/2022 1 1 Specialty Diagnoses / Procedures Referred By Contac t Referred To Contact Diagnoses PCOS (polycystic ovarian syndrome) BMI 50.0-59.9, adult (HCC) Weight loss counseling, encounter for Procedures ENDOCRINOLOGY DIETITIAN VISIT OFFICE/OUTPATIENT [facility] 60-74 MINUTES Brunilda Keita MD [address] [place] [address] Referral ID Status Reason Start Date Expiration Date Visits Requested Visits Authorized [id number] Pending Review PCP Requested Referral 10/18/2021 10/18/2022 1 1 Specialty Diagnoses / Procedures Referred By Contac t Referred To Contact Diagnoses BMI 50.0-59.9, adult (HCC) Weight loss counseling, encounter for Prediabetes Brunilda Keita MD [address] [place] [address] Referral ID Status Reason Start Date Expiration Date V isits Requested Visits Authorized [id number] Pending Review 1 1 Specialty Diagnoses / Procedures Referred By Contac t Referred To Contact Diagnoses New onset type 2 diabetes mellitus (HCC) Morbid obesity with BMI of 50.0-59.9, adult (HCC) PCOS (polycystic ovarian syndrome) Procedures CONSULT TO DIABETES EDUCATION OFFICE/OUTPATIENT [facility] MDM 60-74 MINUTES Shay Li, RADIOLOGICAL HEALTH SPECIALIST.PICKING TABLE WORKER [address] [place] [address] Referral ID Status Reason Start Date Expiration Date Visits Requested Visits Authorized [id number] Authorized PCP Requested Referral 06/27/2022 06/27/2023 1 1 Specialty Diagnoses / Procedures Referred By Contac t Referred To Contact Diagnoses Poorly controlled type 2 diabetes mellitus (HCC) Brunilda Keita MD [address] [place] [address] Referral ID Status Reason Start Date Expiration Date V isits Requested Visits Authorized [id number] Authorized 06/27/2022 06/27/2023 1 1 Additional Source Comments INFORMATION SOURCE (unrecogn ized section and content) DATE CREATED AUTHOR AUTHOR'S ORGANIZ ATION 11/23/2022 [facility] DATE CREATED AUTHOR AUTHOR'S ORGANIZ ATION 07/18/2023 [facility] Source Comments (unrecognize d section and content) In the event this informatio n is protected by the Federal Confidentiality of Alcohol and Drug Abuse Patient Records regulations: The Federal rules restrict any use of the information to criminally investigate or prosecute any alcohol or drug abuse patient.[facility] the event this information is protected by the Federal Confidentiality of Alcohol and Drug Abuse Patient Records regulations: The Federal rules restrict any use of the information to criminally investigate or prosecute any alcohol or drug abuse patient.[facility] the event this information is protected by the Federal Confidentiality of Alcohol and Drug Abuse Patient Records regulations: The Federal rules restrict any use of the information to criminally investigate or prosecute any alcohol or drug abuse patient.[facility] the event this information is protected by the Federal Confidentiality of Alcohol and Drug Abuse Patient Records regulations: The Federal rules restrict any use of the information to criminally investigate or prosecute any alcohol or drug abuse patient.[facility] the event this information is protected by the Federal Confidentiality of Alcohol and Drug Abuse Patient Records regulations: The Federal rules restrict any use of the information to criminally investigate or prosecute any alcohol or drug abuse patient.[facility] the event this information is protected by the Federal Confidentiality of Alcohol and Drug Abuse Patient Records regulations: The Federal rules restrict any use of the information to criminally investigate or prosecute any alcohol or drug abuse patient.[facility] Hospital[facility] the event this information is protected by the Federal Confidentiality of Alcohol and Drug Abuse Patient Records regulations: The Federal rules restrict any use of the information to criminally investigate or prosecute any alcohol or drug abuse patient.[facility] Hospital[facility] the event this information is protected by the Federal Confidentiality of Alcohol and Drug Abuse Patient Records regulations: The Federal rules restrict any use of the information to criminally investigate or prosecute any alcohol or drug abuse patient.[facility] Hospital[facility] the event this information is protected by the Federal Confidentiality of Alcohol and Drug Abuse Patient Records regulations: The Federal rules restrict any use of the information to criminally investigate or prosecute any alcohol or drug abuse patient.[facility] Hospital[facility] the event this information is protected by the Federal Confidentiality of Alcohol and Drug Abuse Patient Records regulations: The Federal rules restrict any use of the information to criminally investigate or prosecute any alcohol or drug abuse patient.[facility] Hospital[facility] the event this information is protected by the Federal Confidentiality of Alcohol and Drug Abuse Patient Records regulations: The Federal rules restrict any use of the information to criminally investigate or prosecute any alcohol or drug abuse patient.[facility] Hospital[facility] the event this information is protected by the Federal Confidentiality of Alcohol and Drug Abuse Patient Records regulations: The Federal rules restrict any use of the information to criminally investigate or prosecute any alcohol or drug abuse patient.[facility] Hospital[facility] the event this information is protected by the Federal Confidentiality of Alcohol and Drug Abuse Patient Records regulations: The Federal rules restrict any use of the information to criminally investigate or prosecute any alcohol or drug abuse patient.[facility] Hospital[facility] the event this information is protected by the Federal Confidentiality of Alcohol and Drug Abuse Patient Records regulations: The Federal rules restrict any use of the information to criminally investigate or prosecute any alcohol or drug abuse patient.[facility] Hospital[facility] the event this information is protected by the Federal Confidentiality of Alcohol and Drug Abuse Patient Records regulations: The Federal rules restrict any use of the information to criminally investigate or prosecute any alcohol or drug abuse patient.[facility] Hospital[facility] the event this information is protected by the Federal Confidentiality of Alcohol and Drug Abuse Patient Records regulations: The Federal rules restrict any use of the information to criminally investigate or prosecute any alcohol or drug abuse patient.[facility] HospitalIn the event this information is protected by the Federal Confidentiality of Alcohol and Drug Abuse Patient Records regulations: The Federal rules restrict any use of the information to criminally investigate or prosecute any alcohol or drug abuse patient.[facility] Hospital[facility] the event this information is protected by the Federal Confidentiality of Alcohol and Drug Abuse Patient Records regulations: The Federal rules restrict any use of the information to criminally investigate or prosecute any alcohol or drug abuse patient.[facility] HospitalIn the event this information is protected by the Federal Confidentiality of Alcohol and Drug Abuse Patient Records regulations: The Federal rules restrict any use of the information to criminally investigate or prosecute any alcohol or drug abuse patient.[facility] HospitalIn the event this information is protected by the Federal Confidentiality of Alcohol and Drug Abuse Patient Records regulations: The Federal rules restrict any use of the information to criminally investigate or prosecute any alcohol or drug abuse patient.[facility] HospitalIn the event this information is protected by the Federal Confidentiality of Alcohol and Drug Abuse Patient Records regulations: The Federal rules restrict any use of the information to criminally investigate or prosecute any alcohol or drug abuse patient.[facility] HospitalIn the event this information is protected by the Federal Confidentiality of Alcohol and Drug Abuse Patient Records regulations: The Federal rules restrict any use of the information to criminally investigate or prosecute any alcohol or drug abuse patient.[facility] HospitalIn the event this information is protected by the Federal Confidentiality of Alcohol and Drug Abuse Patient Records regulations: The Federal rules restrict any use of the information to criminally investigate or prosecute any alcohol or drug abuse patient.[facility] HospitalIn the event this information is protected by the Federal Confidentiality of Alcohol and Drug Abuse Patient Records regulations: The Federal rules restrict any use of the information to criminally investigate or prosecute any alcohol or drug abuse patient.[facility] HospitalIn the event this information is protected by the Federal Confidentiality of Alcohol and Drug Abuse Patient Records regulations: The Federal rules restrict any use of the information to criminally investigate or prosecute any alcohol or drug abuse patient.[facility] HospitalIn the event this information is protected by the Federal Confidentiality of Alcohol and Drug Abuse Patient Records regulations: The Federal rules restrict any use of the information to criminally investigate or prosecute any alcohol or drug abuse patient.[facility] Hospital[facility] the event this information is protected by the Federal Confidentiality of Alcohol and Drug Abuse Patient Records regulations: The Federal rules restrict any use of the information to criminally investigate or prosecute any alcohol or drug abuse patient.[facility] Reason for Visit (unrecogniz ed section and content) Specialty Diagnoses / Procedures Referred By Contshell t Referred To Contact Endocrinology Diagnoses PCOS (polycystic ovarian syndrome) Procedures CONSULT TO ENDOCRINOLOGY OFFICE/OUTPATIENT [facility] 60-74 MINUTES Elena Godfrey APRN.CN [address] [place] [address] Referral ID Status Reason Start Date Expiration Date Visits Requested Visits Authorized [id number] Pending Review PCP Requested Referral 09/10/2021 09/10/2022 1 1 Reason Comments Follow Up Reason Comments Medication Request adipex Reason Comments Patient Update Reason Comments Consult Reason Comments Insurance Authorization [employer] Reason Comments Insurance Authorization Saxenda Reason Comments Follow Up Reason Comments Medication Follow-up adipex Reason Comments Insurance Authorization Ozempic Reason Comments Insurance Authorization Slynd 4MG tablet s Reason Onset Date Comments Refill Request 12/13/2021 Reason Comments No Show Reason Comments Follow Up Adderall, has been o ut of meds since beginning of January Reason Comments Results Reason Comments Insurance Authorization Mounjaro 2.5mg/0 .5ml Reason Onset Date Comments Refill Request 08/26/2022 Reason Comments Medication Follow-up Abdominal Pain WITH nausea/vomiting and diarrhea. Treating with immodium and did stop mounjoro for 2 weeks and that did not help symptoms either. Reason Onset Date Comments Refill Request 03/25/2023 Reason Comments Follow Up discuss medication a dderall and others Reason Onset Date Comments Refill Request 04/19/2023 Reason Comments Radiology US Specialty Diagnoses / Procedures Referred By Contac t Referred To Contact US IMAGING Diagnoses Pelvic pain in female Procedures US FEMALE PELVIS TRANSVAG US TRANSVAGINAL Elena Godfrey APRN.CN [address] [place] [address] [place] [address] Referral ID Status Reason Start Date Expiration Date V isits Requested Visits Authorized [id number] Closed Auto-Generate d Referral 04/24/2023 05/23/2024 1 1 Reason Comments Follow Up labs and meds Reason Comments Follow Up Ultrasound on 2022 Care Teams (unrecognized sec tion and content) Machinist Class B Relationship Specialty Start Date End Date Bao Tamayo MD [address] [facility] [place] [address] PCP - General Internal Medicine 11/11/13 Machinist Class B Relationship Specialty Start Date End Date Bao Tamayo MD [address] [facility] [place] [address] PCP - General Internal Medicine 11/11/13 Machinist Class B Relationship Specialty Start Date End Date Bao Tamayo MD [address] [facility] [place] [address] PCP - General Internal Medicine 11/11/13 Machinist Class B Relationship Specialty Start Date End Date Bao Tamayo MD [address] [facility] [place] [place] [address] PCP - General Internal Medicine 11/11/13 Machinist Class B Relationship Specialty Start Date End Date Bao Tamayo MD [address] [facility] [place] [address] PCP - General Internal Medicine 11/11/13 Machinist Class B Relationship Specialty Start Date End Date Bao Tamayo MD [address] [facility] [place] [address] PCP - General Internal Medicine 11/11/13 Machinist Class B Relationship Specialty Start Date End Date Bao Tamayo MD [address] [place] [address] PCP - General Internal Medicine 11/11/13 Machinist Class B Relationship Specialty Start Date End Date Bao Tamayo MD [address] [place] [address] PCP - General Internal Medicine 11/11/13 Machinist Class B Relationship Specialty Start Date End Date Bao Tamayo MD [address] [place] [address] PCP - General Internal Medicine 11/11/13 Machinist Class B Relationship Specialty Start Date End Date Bao Tamayo MD [address] [place] [address] PCP - General Internal Medicine 11/11/13 Machinist Class B Relationship Specialty Start Date End Date Bao Tamayo MD [address] [place] [address] PCP - General Internal Medicine 11/11/13 Machinist Class B Relationship Specialty Start Date End Date Bao Tamayo MD [address] [place] [address] PCP - General Internal Medicine 11/11/13 Machinist Class B Relationship Specialty Start Date End Date Bao Tamayo MD [address] [place] [address] PCP - General Internal Medicine 11/11/13 Machinist Class B Relationship Specialty Start Date End Date Bao Tamayo MD [address] [place] [address] PCP - General Internal Medicine 11/11/13 Machinist Class B Relationship Specialty Start Date End Date Bao Tamayo MD [address] [place] [address] PCP - General Internal Medicine 11/11/13 Machinist Class B Relationship Specialty Start Date End Date Bao Tamayo MD [address] [place] [address] PCP - General Internal Medicine 11/11/13 Machinist Class B Relationship Specialty Start Date End Date Bao Tamayo MD [address] [place] [address] PCP - General Internal Medicine 11/11/13 Machinist Class B Relationship Specialty Start Date End Date Bao Tamayo MD [address] [place] [address] PCP - General Internal Medicine 11/11/13 Machinist Class B Relationship Specialty Start Date End Date Bao Tamayo MD [address] [place] [address] PCP - General Internal Medicine 11/11/13 Machinist Class B Relationship Specialty Start Date End Date Bao Tamayo MD [address] [place] [address] PCP - General Internal Medicine 11/11/13 Machinist Class B Relationship Specialty Start Date End Date Bao Tamayo MD [address] [place] [address] PCP - General Internal Medicine 11/11/13 Machinist Class B Relationship Specialty Start Date End Date Bao Tamayo MD [address] [place] [address] PCP - General Internal Medicine 11/11/13 Machinist Class B Relationship Specialty Start Date End Date Bao Tamayo MD [address] [place] [address] PCP - General Internal Medicine 11/11/13 FOR RECORDS PERTAINING TO PATIENTS WHO ARE OR HAVE BEEN ENROLLED IN A CHEMICAL DEPENDENCY/SUBSTANCEABUSE PROGRAM, SOME INFORMATION MAY BE OMITTED. This clinical summary was aggregated from multiple sources. Caution should be exercised in using it in the provision of clinical care. This summary normalizes information from multiple sources, and as a consequence, information in this document may materially change the coding, format and clinical context of patient data. In addition, data may be omitted in some cases. CLINICAL DECISIONS SHOULD BE BASED ON THE PRIMARY CLINICAL RECORDS. [email or web address] [facility]. provides no warranty or guarantee of the accuracy or completeness of information in this document.
[2023-08-08 06:28] LABS: Bedside Glucose 137 mg/dL (74-106)
[2023-08-08 06:28] LABS: Internal QC Validated? YES +Cl - CLEAR BKGD
[2023-08-08 06:29] LABS: Pregnancy, Urine Negative Negative
[2023-08-08] MEDS: Lactated Ringers 1,000 ML 15 ML IV (06:35)
[2023-08-08] MEDS: Levonorgestrel IUD (Liletta) 1 EACH INTRA-UTER (07:46)
--- NOTE | 2023-08-08 07:49 | PCM.OPRPT ---
Report of Operation Date of Procedure: 08/08/23 Pre-Operative Diagnosis: Endometrial polyp, Endometrial hyperplasia, AUB, Post-Operative Diagnosis: Same Surgery/Procedure Performed:: Hysteroscopy , D&C , polypectomy with symphion insertion of liletta iud Description of Surgical Findings:: tubal ostia viusalized. Polyp noted on posterior aspect of uterus. Surgeon: Chiara Powell container finisher: None Type of Anesthesia: MAC Specimen's removed: endometrial curettings and endometrial polyp Estimated Blood Loss (mL): <5cc Fluids Replaced: 500cc Description of Procedure: Informed consent was obtained the patient was taken the operating room she was placed in supine position. She was given anesthesia. She was then placed in the [facility] where she was prepped and draped in the normal sterile fashion. At this time the weighted speculum was placed in the posterior fornix of vagina. Single-tooth tenaculum was used to gently grasp the anterior lip the cervix. At this time the uterine cavity was sounded to approximately 8 cm. Gentle dilatation was performed once adequate dilatation of the cervix was achieved the hysteroscope using normal saline as a distention medium was placed. Tubal ostia visualized. Polyp noted on posterior aspect of uterus. Symphion resting device used to obtain endometrial curettings and to perform polypectomy. Tissue will be sent to pathology for evaluation. Liletta IUD inserted without difficulty. Tenaculum removed. Good hemostasis. Instrument, lap count correct x 2. Vaginal Sweep was negative. fluid deficit 500cc Grafts/Implants Used: liletta IUD Procedure Start Time: 07:40 Procedure Stop Time: 07:48 Complications none Admit VTE Documentation VTE Present on Admission: Yes VTE Mechan Device Prophylaxis: SCD's VTE Pharm Prophylaxis ordered?: No Reason prophylaxis not ordered:: Procedure Not Indicated
--- NOTE | 2023-08-08 07:56 | DCINST_ITS ---
Discharge Instructions Diet Discharge Diet: No restrictions Activity May resume sexual activity in: 1 week Dressing / Incision Call your doctor if you observe: Fever of 101 or Higher, Inability to urinate, Using more than 1 pad per hour and Uncontrolled pain Follow Up Care Please Follow Up With: Chiara Powell MD When: 1-2 weeks post OP if you need an appointment please call [phone] Test Results: Test results from this visit will be discussed in further detail at your follow- up appointment, if applicable. Discharge Plan Admission Attending Provider: Chiara Powell Primary Care Provider: Care Physician,No Primary Discharge Orders/Prescriptions Prescriptions: No Action multivitamin tablet 1 tab PO QDAY acetaminophen [Tylenol] 325 mg tablet 325 mg PO Q6H PRN (Reason: pain) Mounjaro 10 mg/0.5 mL pen injector 10 mg SUBCUT .Q WEEKLY Patient Comments: INJECT 10MG SUBCUTANEOUSLY 1 TIME A WEEK dextroamphetamine-amphetamine 5 mg tablet 5 mg PO .Q AFTERNOON Patient Comments: take 1 tablet by mouth once daily IN THE AFTERNOON/EVENING dextroamphetamine-amphetamine 15 mg capsule,extended release 24hr 15 mg PO .Q AM Patient Comments: take 1 capsule by mouth once daily fluoxetine 20 mg capsule 20 mg PO QHS Patient Comments: take 1 capsule by mouth once daily pantoprazole 40 mg tablet,delayed release (DR/EC) 40 mg PO DAILY Patient Comments: take 1 tablet by mouth once daily albuterol-budesonide 90-80 mcg/actuation HFA aerosol inhaler 2 inh inhalation DAILY PRN (Reason: shortness of breath) Disposition Disposition (needs filled in before D/C Order can be placed): Home, Self Care
[2023-08-08] MEDS: Acetaminophen 500 MG Tablet 1000 MG PO (08:34)
== END 2023-08-08 09:48 | disposition home or self-care (01) ==
LOC: SDC 05:48 → AC 05:49
PROVIDERS: Anesthesiology; Referring Provider Obstetrics & Gynecology; Visit Provider Obstetrics & Gynecology
PROC: 0UB98ZZ Excision of Uterus, Via Natural or Artificial Opening Endoscopic (ICD-10-PCS; CPT 58558; principal; 2023-08-08 07:15)
DX: N84.0 Polyp of corpus uteri (principal); E11.9 Type 2 diabetes mellitus without complications; Z79.4 Long term (current) use of insulin; N93.9 Abnormal uterine and vaginal bleeding, unspecified; Z87.891 Personal history of nicotine dependence; Z30.430 Encounter for insertion of intrauterine contraceptive device; Z79.899 Other long term (current) drug therapy; K21.9 Gastro-esophageal reflux disease without esophagitis
CPT/HCPCS: 58558; 58300; 00952; 36415; 80048; 81025; 82962; 83036; 85027; 88305; 93005; J7120; J2405